=== PATIENT | female | born 1980 | race American Indian/Alaskan Native ===

== ENCOUNTER 2018-12-09 17:42 | Emergency (ER) | payer OTHER ==
[2018-12-09 18:12] VITALS: BP 164/93
--- NOTE | 2018-12-09 18:14 | Emergency Department Report ---
Blank Doc - Documentation Documentation: CP started today redness area on breast 3 days ago . Radiated down left arm. This initial assessment diagnostic orders/clinical plan/treatment (s) is/Are subject change based on patient's health status, clinical progression and re- assessment by fellow clinical providers in the ED. Further treatment and work-up at subsequent clinical providers discretion. Patient/guardians urged not to elope from their condition may be serious if not clinically assessed and managed. Initial order include:
[2018-12-09 18:38] LABS: Basophils # (Auto) 0.1 K/mm3 (0.0-0.1); Basophils % (Auto) 0.6 % (0.0-1.8); Eosinophils # (Auto) 0.1 K/mm3 (0.0-0.4); Eosinophils % (Auto) 1.1 % (0.0-4.3); Hematocrit 38.9 % (30.3-42.9); Hemoglobin 12.5 gm/dl (10.1-14.3); Lymphocytes # (Auto) 3.3 K/mm3 (1.2-5.4); Lymphocytes % (Auto) 39.6 % (13.4-35.0); Mean Corpuscular HGB Conc 32 % (30-34); Mean Corpuscular Volume 72 fl (79-97); Monocytes # (Auto) 0.8 K/mm3 (0.0-0.8); Monocytes % (Auto) 9.3 % (0.0-7.3); Platelet Count 308 K/mm3 (140-440); Red Blood Count 5.44 M/mm3 (3.65-5.03); Red Cell Distribution Width 15.6 % (13.2-15.2)
[2018-12-09 18:55] LABS: Alanine Aminotransferase 9 units/L (7-56); Albumin 3.8 g/dL (3.9-5); BUN/Creatinine Ratio 12; Blood Urea Nitrogen 7 mg/dL (7-17); Calcium 8.9 mg/dL (8.4-10.2); Hemolysis Index 5
[2018-12-09] MEDS ORDERED: ULTRAM PO ONE (19:58)
[2018-12-09] MEDS ORDERED: NACL 0.9% 1000 ML 1,000 ML IV ONE (20:48)
--- NOTE | 2018-12-09 20:54 | Emergency Department Report ---
ED Chest Pain HPI - General Chief Complaint: Chest Pain Stated Complaint: CHEST PAIN/LFT SIDE BREAST PAIN Time Seen by Provider: 12/09/18 19:28 Source: patient Mode of arrival: Ambulatory Limitations: No Limitations - History of Present Illness Initial Comments: There is associated emergency room decision and left anterolateral chest pain chest pain described as an aching pain is exacerbated by deep breathing and movement patient is a history of cardiac condition no hypertension or diabetes no family history of [place] or cardiac disease there's been no diaphoresis no shortness of breath no back pain this episode started 2 days ago. Patient denies cough no fever no chills there's a secondary concern for small breast lump left no nipple discharge no fever no dainage no erythema mass presents for past month pt noticed on monthly breast exam. MD Complaint: chest pain Onset/Timin -: days(s) Onset: during exertion Pain Location: left chest Pain Radiation: none Severity: moderate Severity scale (0 -10): 8 Quality: aching, sharp Consistency: intermittent Improves With: movement, other (deep breathing ) Worsens With: inspiration, palpation, movement re: denies: nausea, vomting, diaphoresis, dyspnea, sense of impending doom Other Symptoms: denies: cough, fever, syncope, leg swelling, palpitations Treatments Prior to Arrival: none Aspirin use within the Past 7 Days: (0) No - Related Data Previous Rx's Medication Instructions Recorded Last Taken Type Erythromycin [Erythromycin Ophth 10 applic OS QID #1 tube 09/24/16 Unknown Rx Oint] Ibuprofen [Motrin 800 MG tab] 800 mg PO Q8HR PRN #30 tablet 09/24/16 Unknown Rx ALBUTEROL Inhaler(NF) [VENTOLIN 2 puff IH Q4H PRN #1 inha 12/09/18 Unknown Rx Inhaler(NF)] Benzocaine/Menth/Cetylpyrd 1 each MM Q2H PRN #3 packet 12/09/18 Unknown Rx [Cepacol X Strength] Dexamethasone [Decadron] 4 mg PO BID 2 Days #4 tablet 12/09/18 Unknown Rx Ibuprofen 800 mg PO TID PRN #30 tablet 12/09/18 Unknown Rx Ondansetron [Zofran Odt] 4 mg PO Q8HR PRN #12 tab.rapdis 12/09/18 Unknown Rx Allergies Allergy/AdvReac Type Severity Reaction Status Date / Time No Known Allergies Allergy Verified 12/09/18 18:10 Heart Score - HEART Score History: Slightly suspicious EKG: Normal Age: < 45 Risk factors: No known risk factors Troponin: < normal limit HEART Score: 0 ED Review of Systems ROS: Stated complaint: CHEST PAIN/LFT SIDE BREAST PAIN Other details as noted in HPI Constitutional: denies: chills, fever Eyes: denies: eye pain, eye discharge, vision change ENT: denies: ear pain, throat pain Respiratory: denies: cough, shortness of breath, wheezing Cardiovascular: chest pain. denies: palpitations Endocrine: no symptoms reported Gastrointestinal: denies: abdominal pain, nausea, vomiting, diarrhea Genitourinary: denies: urgency, dysuria, discharge Musculoskeletal: denies: back pain, joint swelling, arthralgia Skin: other (lesion left breast ). denies: rash, lesions Neurological: denies: headache, weakness, paresthesias Psychiatric: denies: anxiety, depression Hematological/Lymphatic: denies: easy bleeding, easy bruising ED Past Medical Hx - Past Medical History Previous Medical History?: No - Surgical History Past Surgical History?: No - Social History Smoking Status: Never Smoker Substance Use Type: None - Medications Home Medications: Home Medications Medication Instructions Recorded Confirmed Last Taken Type Erythromycin [Erythromycin Ophth 10 applic OS QID #1 tube 09/24/16 Unknown Rx Oint] Ibuprofen [Motrin 800 MG tab] 800 mg PO Q8HR PRN #30 tablet 09/24/16 Unknown Rx ALBUTEROL Inhaler(NF) [VENTOLIN 2 puff IH Q4H PRN #1 inha 12/09/18 Unknown Rx Inhaler(NF)] Benzocaine/Menth/Cetylpyrd 1 each MM Q2H PRN #3 packet 12/09/18 Unknown Rx [Cepacol X Strength] Dexamethasone [Decadron] 4 mg PO BID 2 Days #4 tablet 12/09/18 Unknown Rx Ibuprofen 800 mg PO TID PRN #30 tablet 12/09/18 Unknown Rx Ondansetron [Zofran Odt] 4 mg PO Q8HR PRN #12 tab.rapdis 12/09/18 Unknown Rx ED Physical Exam - General Limitations: No Limitations General appearance: alert, in no apparent distress - Head Head exam: Present: atraumatic, normocephalic - Eye Eye exam: Present: normal appearance, PERRL, EOMI Pupils: Present: normal accommodation - ENT ENT exam: Present: normal orophraynx, mucous membranes moist, TM's normal bilaterally, normal external ear exam - Neck Neck exam: Present: normal inspection, full ROM. Absent: tenderness, meningismus, lymphadenopathy, thyromegaly - Respiratory Respiratory exam: Present: normal lung sounds bilaterally, chest wall tenderness (left lateral chest wall reproducible to deep palpation ). Absent: respiratory distress, wheezes, stridor, prolonged expiratory - Cardiovascular Cardiovascular Exam: Present: regular rate, normal rhythm, normal heart sounds. Absent: systolic murmur, diastolic murmur, rubs, gallop - GI/Abdominal GI/Abdominal exam: Present: soft, normal bowel sounds. Absent: tenderness, bruit, hernia - Rectal Rectal exam: Present: deferred - Extremities Exam Extremities exam: Present: normal inspection, full ROM, normal capillary refill. Absent: tenderness, joint swelling (vital) - Back Exam Back exam: Present: normal inspection, full ROM. Absent: tenderness, CVA tenderness (R), CVA tenderness (L), muscle spasm, rash noted - Neurological Exam Neurological exam: Present: alert, oriented X3, CN II-XII intact, normal gait, reflexes normal - Psychiatric Psychiatric exam: Present: normal affect, normal mood - Skin Skin exam: Present: warm, dry, intact, normal color. Absent: rash ED Course Vital Signs 12/09/18 12/09/18 18:10 20:23 Temperature 99.1 F Pulse Rate 87 Respiratory 16 16 Rate Blood Pressure 164/93 O2 Sat by Pulse 96 Oximetry ROSA score - Rosa Score Age > 65: (0) No Aspirin use within the Past 7 Days: (0) No 3 or more CAD Risk Factors: (0) No 2 or more Angina events in past 24 hrs: (0) No Known CAD with more than 50% Stenosis: (0) No Elevated Cardiac Markers: (0) No ST Deviation Greater than 0.5mm: (0) No ROSA Score: 0 ED Medical Decision Making - Lab Data Result diagrams: 12/09/18 18:20 12/09/18 18:20 Labs 12/09/18 12/09/18 12/09/18 18:20 18:20 18:20 WBC 8.3 RBC 5.44 H Hgb 12.5 Hct 38.9 MCV 72 L MCH 23 L MCHC 32 RDW 15.6 H Plt Count 308 Lymph % (Auto) 39.6 H [place] % (Auto) 9.3 H Eos % (Auto) 1.1 Baso % (Auto) 0.6 Lymph # 3.3 [place] # 0.8 Eos # 0.1 Baso # 0.1 Seg Neutrophils % 49.4 Seg Neutrophils # 4.1 Sodium 137 Potassium 3.4 L Chloride 100.3 Carbon Dioxide 27 Anion Gap 13 BUN 7 Creatinine 0.6 L Estimated GFR > 60 BUN/Creatinine Ratio 12 Glucose 97 Calcium 8.9 Total Bilirubin 0.30 AST 15 ALT 9 Alkaline Phosphatase 83 Troponin T < 0.010 Total Protein 7.5 Albumin 3.8 L Albumin/Globulin Ratio 1.0 HCG, Qual Negative - EKG Data EKG shows normal: sinus rhythm Rate: normal - EKG Data When compared to previous EKG there are: previous EKG unavailable Interpretation: normal EKG (ekg interp by ed attending, NSR no ectopy no st elevation) - Radiology Data Radiology results: image reviewed no infiltrates no opacities, - Medical Decision Making Pain improved, cxr: normal no opacties no infiltrates , symptoms improved with tx given in ed ,this is pharyngitis ,tx'd for same, plan, dc to home with rx for decadron, albuterol inhaler prn sob, ibuprofen prn pain cepacol throat lozenges prn throat pain, pt will follow up with pcp in 2-3 days , pt verbalized agreement and understanding of discharge plan. Critical care attestation.: If time is entered above; I have spent that time in minutes in the direct care of this critically ill patient, excluding procedure time. ED Disposition Clinical Impression: Pharyngitis Qualifiers: Pharyngitis/tonsillitis etiology: unspecified etiology Qualified Code(s): J02.9 - Acute pharyngitis, unspecified URI (upper respiratory infection) Qualifiers: URI type: unspecified viral URI Qualified Code(s): J06.9 - Acute upper respiratory infection, unspecified Disposition: DC-01 TO HOME OR SELFCARE Is pt being admited?: No Does the pt Need Aspirin: No Condition: Stable Instructions: Pharyngitis (ED), Upper Respiratory Infection (ED) Prescriptions: ALBUTEROL Inhaler(NF) [VENTOLIN Inhaler(NF)] 2 puff IH Q4H PRN #1 inha PRN Reason: shortness of breath wheezing Benzocaine/Menth/Cetylpyrd [Cepacol X Strength] 1 each MM Q2H PRN #3 packet PRN Reason: throat pain Dexamethasone [Decadron] 4 mg PO BID 2 Days #4 tablet Ibuprofen 800 mg PO TID PRN #30 tablet PRN Reason: pain fever Ondansetron [Zofran Odt] 4 mg PO Q8HR PRN #12 tab.rapdis PRN Reason: Nausea And Vomiting Referrals: [facility] [Outside] - 3-5 Days Forms: Work/School Release Form(ED) Time of Disposition: 22:03
--- NOTE | 2018-12-10 19:27 | XRay Report ---
PROCEDURE: XR CHEST ROUTINE 2V HISTORY: Chest Pain FINDINGS: Frontal and lateral views of the chest were acquired. The heart is mildly enlarged. There is no evide nce of congestive heart failure. There is no consolidative infiltrate. IMPRESSION: Mild cardiomegaly. Otherwise, no active disease in the chest This document is electronically signed by Christopher Whyte MD., December 09 2018 09:25:44 PM ET
== END 2018-12-09 22:13 | disposition home or self-care (01) ==
LOC: ED 17:42
DX: J02.9 Acute pharyngitis, unspecified (principal); J06.9 Acute upper respiratory infection, unspecified
CPT/HCPCS: 36415; 71046; 80053; 84484; 84703; 85025; 93005; 93010; 99284; J7030

== ENCOUNTER 2019-01-28 12:39 | Emergency (ER) | payer OTHER ==
[2019-01-28 12:53] VITALS: BP 134/102
--- NOTE | 2019-01-28 12:55 | Emergency Department Report ---
Chief Complaint: Sore Throat Stated Complaint: LIGHT HEADED/VOMITING Time Seen by Provider: 01/28/19 12:51 - HPI History of Present Illness: pt states she has a sore throat that began yesterday has N/V- 3x denies diarrhea no abd pain no PMHx denies sick contacts no new foods, no water from a different source, no recent travel no urinary sx no meds on daily basis LNMP 8 days ago MSE screening note: Focused history and physical exam performed. Due to findings the following was ordered: rapid strep, cbc, bmp, hcg, and UA ED Disposition for MSE Condition: Stable
[2019-01-28 13:12] LABS: Basophils # (Auto) 0.1 K/mm3 (0.0-0.1); Basophils % (Auto) 0.8 % (0.0-1.8); Eosinophils # (Auto) 0.1 K/mm3 (0.0-0.4); Eosinophils % (Auto) 1.3 % (0.0-4.3); Hematocrit 38.8 % (30.3-42.9); Hemoglobin 12.6 gm/dl (10.1-14.3); Lymphocytes # (Auto) 2.9 K/mm3 (1.2-5.4); Lymphocytes % (Auto) 43.4 % (13.4-35.0); Mean Corpuscular HGB Conc 32 % (30-34); Mean Corpuscular Volume 71 fl (79-97); Monocytes # (Auto) 0.6 K/mm3 (0.0-0.8); Monocytes % (Auto) 8.6 % (0.0-7.3); Platelet Count 344 K/mm3 (140-440); Red Blood Count 5.46 M/mm3 (3.65-5.03); Red Cell Distribution Width 15.2 % (13.2-15.2)
[2019-01-28 13:32] LABS: BUN/Creatinine Ratio 13; Blood Urea Nitrogen 8 mg/dL (7-17); Calcium 8.6 mg/dL (8.4-10.2); Hemolysis Index 0
[2019-01-28 14:37] LABS: Bilirubin,Urine NEG (Negative); Blood,Urine NEG (Negative); Color,Urine Yellow (Yellow); Mucus,Urine 1+ /HPF; Protein,Urine <15 mg/dL mg/dL (Negative); Urobilinogen,Urine < 2.0 mg/dL (<2.0)
--- NOTE | 2019-01-28 16:26 | Emergency Department Report ---
ED General Adult HPI - General Chief complaint: Sore Throat Stated complaint: LIGHT HEADED/VOMITING Time Seen by Provider: 01/28/19 12:51 Source: patient Mode of arrival: Ambulatory Limitations: No Limitations - History of Present Illness Initial comments: Patient presents to the emergency department with a chief complaint of sore throat with nausea and vomiting the last couple days. Patient denies any sick contacts. Patient also denies chest pain, abdominal pain, shortness breath. Patient's concerned about her blood pressures well which is elevated on his ED visit. Patient states her blood pressure is always elevated when she goes to her doctor as well. -: Gradual Severity scale (0 -10): 0 Quality: aching Consistency: constant Improves with: none Worsens with: none Associated Symptoms: denies other symptoms Treatments Prior to Arrival: none - Related Data Previous Rx's Medication Instructions Recorded Last Taken Type Erythromycin [Erythromycin Ophth 10 applic OS QID #1 tube 09/24/16 Unknown Rx Oint] Ibuprofen [Motrin 800 MG tab] 800 mg PO Q8HR PRN #30 tablet 09/24/16 Unknown Rx ALBUTEROL Inhaler(NF) [VENTOLIN 2 puff IH Q4H PRN #1 inha 12/09/18 Unknown Rx Inhaler(NF)] Benzocaine/Mentho [Cepacol X 1 each MM Q2H PRN #3 packet 12/09/18 Unknown Rx Strength] Dexamethasone [Decadron] 4 mg PO BID 2 Days #4 tablet 12/09/18 Unknown Rx Ibuprofen 800 mg PO TID PRN #30 tablet 12/09/18 Unknown Rx Ondansetron [Zofran Odt] 4 mg PO Q8HR PRN #12 tab.rapdis 12/09/18 Unknown Rx Ondansetron [Zofran Odt] 4 mg PO Q4HR PRN #20 tab.rapdis 01/28/19 Unknown Rx hydroCHLOROthiazide [Hctz] 12.5 mg PO BID #60 capsule 01/28/19 Unknown Rx traMADol [Ultram] 50 mg PO Q6HR PRN #24 tablet 01/28/19 Unknown Rx Allergies Allergy/AdvReac Type Severity Reaction Status Date / Time No Known Allergies Allergy Verified 12/09/18 18:10 ED Review of Systems ROS: Stated complaint: LIGHT HEADED/VOMITING Other details as noted in HPI Comment: All other systems reviewed and negative Constitutional: denies: chills, fever Eyes: denies: eye pain, eye discharge, vision change ENT: denies: ear pain, throat pain Respiratory: denies: cough, shortness of breath, wheezing Cardiovascular: denies: chest pain, palpitations Endocrine: no symptoms reported Gastrointestinal: nausea, vomiting. denies: abdominal pain, diarrhea Genitourinary: denies: urgency, dysuria, discharge Musculoskeletal: denies: back pain, joint swelling, arthralgia Skin: denies: rash, lesions Neurological: denies: headache, weakness, paresthesias Psychiatric: denies: anxiety, depression Hematological/Lymphatic: denies: easy bleeding, easy bruising ED Past Medical Hx - Past Medical History Previous Medical History?: No - Surgical History Past Surgical History?: Yes Additional Surgical History: C section - Social History Smoking Status: Never Smoker Substance Use Type: None - Medications Home Medications: Home Medications Medication Instructions Recorded Confirmed Last Taken Type Erythromycin [Erythromycin Ophth 10 applic OS QID #1 tube 09/24/16 Unknown Rx Oint] Ibuprofen [Motrin 800 MG tab] 800 mg PO Q8HR PRN #30 tablet 09/24/16 Unknown Rx ALBUTEROL Inhaler(NF) [VENTOLIN 2 puff IH Q4H PRN #1 inha 12/09/18 Unknown Rx Inhaler(NF)] Benzocaine/Mentho [Cepacol X 1 each MM Q2H PRN #3 packet 12/09/18 Unknown Rx Strength] Dexamethasone [Decadron] 4 mg PO BID 2 Days #4 tablet 12/09/18 Unknown Rx Ibuprofen 800 mg PO TID PRN #30 tablet 12/09/18 Unknown Rx Ondansetron [Zofran Odt] 4 mg PO Q8HR PRN #12 tab.rapdis 12/09/18 Unknown Rx Ondansetron [Zofran Odt] 4 mg PO Q4HR PRN #20 tab.rapdis 01/28/19 Unknown Rx hydroCHLOROthiazide [Hctz] 12.5 mg PO BID #60 capsule 01/28/19 Unknown Rx traMADol [Ultram] 50 mg PO Q6HR PRN #24 tablet 01/28/19 Unknown Rx ED Physical Exam - General Limitations: No Limitations General appearance: alert, in no apparent distress - Head Head exam: Present: atraumatic, normocephalic - Eye Eye exam: Present: normal appearance, PERRL, EOMI - ENT ENT exam: Present: mucous membranes moist - Neck Neck exam: Present: normal inspection - Respiratory Respiratory exam: Present: normal lung sounds bilaterally. Absent: respiratory distress, wheezes - Cardiovascular Cardiovascular Exam: Present: regular rate, normal rhythm. Absent: systolic murmur, diastolic murmur, rubs, gallop - GI/Abdominal GI/Abdominal exam: Present: soft, normal bowel sounds. Absent: distended, tenderness - Extremities Exam Extremities exam: Present: normal inspection - Back Exam Back exam: Present: normal inspection - Neurological Exam Neurological exam: Present: alert, oriented X3, CN II-XII intact. Absent: motor sensory deficit - Psychiatric Psychiatric exam: Present: normal affect, normal mood - Skin Skin exam: Present: warm, dry, intact, normal color. Absent: rash ED Course Vital Signs 01/28/19 12:51 Temperature 98.1 F Pulse Rate 90 Respiratory 18 Rate Blood Pressure 134/102 O2 Sat by Pulse 98 Oximetry ED Medical Decision Making - Lab Data Result diagrams: 01/28/19 12:59 01/28/19 12:59 Lab Results 01/28/19 01/28/19 01/28/19 Range/Units 12:55 12:59 12:59 WBC 6.7 (4.5-11.0) K/mm3 RBC 5.46 H (3.65-5.03) M/mm3 Hgb 12.6 (10.1-14.3) gm/dl Hct 38.8 (30.3-42.9) % MCV 71 L (79-97) fl MCH 23 L (28-32) pg MCHC 32 (30-34) % RDW 15.2 (13.2-15.2) % Plt Count 344 (140-440) K/mm3 Lymph % (Auto) 43.4 H (13.4-35.0) % [place] % (Auto) 8.6 H (0.0-7.3) % Eos % (Auto) 1.3 (0.0-4.3) % Baso % (Auto) 0.8 (0.0-1.8) % Lymph # 2.9 (1.2-5.4) K/mm3 [place] # 0.6 (0.0-0.8) K/mm3 Eos # 0.1 (0.0-0.4) K/mm3 Baso # 0.1 (0.0-0.1) K/mm3 Seg Neutrophils % 45.9 (40.0-70.0) % Seg Neutrophils # 3.1 (1.8-7.7) K/mm3 Sodium 141 (137-145) mmol/L Potassium 3.9 (3.6-5.0) mmol/L Chloride 104.6 (98-107) mmol/L Carbon Dioxide 26 (22-30) mmol/L Anion Gap 14 mmol/L BUN 8 (7-17) mg/dL Creatinine 0.6 L (0.7-1.2) mg/dL Estimated GFR > 60 ml/min BUN/Creatinine Ratio 13 % Glucose 102 H (65-100) mg/dL Calcium 8.6 (8.4-10.2) mg/dL HCG, Qual (Negative) Urine Color (Yellow) Urine Turbidity (Clear) Urine pH (5.0-7.0) Ur Specific [place] (1.003-1.030) Urine Protein (Negative) mg/dL Urine Glucose (UA) (Negative) mg/dL Urine Ketones (Negative) mg/dL Urine Blood (Negative) Urine Nitrite (Negative) Urine Bilirubin (Negative) Urine Urobilinogen (<2.0) mg/dL Ur Leukocyte Esterase (Negative) Urine WBC (Auto) (0.0-6.0) /HPF Urine RBC (Auto) (0.0-6.0) /HPF U Epithel Cells (Auto) (0-13.0) /HPF Urine Mucus /HPF Group A Strep Rapid Negative (Negative) 01/28/19 01/28/19 Range/Units 12:59 14:19 WBC (4.5-11.0) K/mm3 RBC (3.65-5.03) M/mm3 Hgb (10.1-14.3) gm/dl Hct (30.3-42.9) % MCV (79-97) fl MCH (28-32) pg MCHC (30-34) % RDW (13.2-15.2) % Plt Count (140-440) K/mm3 Lymph % (Auto) (13.4-35.0) % [place] % (Auto) (0.0-7.3) % Eos % (Auto) (0.0-4.3) % Baso % (Auto) (0.0-1.8) % Lymph # (1.2-5.4) K/mm3 [place] # (0.0-0.8) K/mm3 Eos # (0.0-0.4) K/mm3 Baso # (0.0-0.1) K/mm3 Seg Neutrophils % (40.0-70.0) % Seg Neutrophils # (1.8-7.7) K/mm3 Sodium (137-145) mmol/L Potassium (3.6-5.0) mmol/L Chloride (98-107) mmol/L Carbon Dioxide (22-30) mmol/L Anion Gap mmol/L BUN (7-17) mg/dL Creatinine (0.7-1.2) mg/dL Estimated GFR ml/min BUN/Creatinine Ratio % Glucose (65-100) mg/dL Calcium (8.4-10.2) mg/dL HCG, Qual Negative (Negative) Urine Color Yellow (Yellow) Urine Turbidity Clear (Clear) Urine pH 7.0 (5.0-7.0) Ur Specific [place] 1.033 H (1.003-1.030) Urine Protein <15 mg/dl (Negative) mg/dL Urine Glucose (UA) Neg (Negative) mg/dL Urine Ketones Neg (Negative) mg/dL Urine Blood Neg (Negative) Urine Nitrite Neg (Negative) Urine Bilirubin Neg (Negative) Urine Urobilinogen < 2.0 (<2.0) mg/dL Ur Leukocyte Esterase Neg (Negative) Urine WBC (Auto) 3.0 (0.0-6.0) /HPF Urine RBC (Auto) 2.0 (0.0-6.0) /HPF U Epithel Cells (Auto) 4.0 (0-13.0) /HPF Urine Mucus 1+ /HPF Group A Strep Rapid (Negative) - Medical Decision Making Discussed results with patient Critical care attestation.: If time is entered above; I have spent that time in minutes in the direct care of this critically ill patient, excluding procedure time. ED Disposition Clinical Impression: Nausea & vomiting, Elevated BP without diagnosis of hypertension, Pharyngitis Disposition: TO HOME OR SELFCARE Is pt being admited?: No Does the pt Need Aspirin: No Condition: Stable Instructions: Pharyngitis (ED), Chronic Hypertension (ED), Acute Nausea and Vomiting (ED) Additional Instructions: return if worse Prescriptions: hydroCHLOROthiazide [Hctz] 12.5 mg PO BID #60 capsule traMADol [Ultram] 50 mg PO Q6HR PRN #24 tablet PRN Reason: Pain Ondansetron [Zofran Odt] 4 mg PO Q4HR PRN #20 tab.rapdis PRN Reason: Nausea Referrals: PRIMARY CARE, [Primary Care Provider] - 3-5 Days Time of Disposition: 16:25
== END 2019-01-28 16:34 | disposition home or self-care (01) ==
LOC: ED 12:39
DX: R11.2 Nausea with vomiting, unspecified (principal); J02.9 Acute pharyngitis, unspecified; R03.0 Elevated blood-pressure reading, without diagnosis of hypertension
CPT/HCPCS: 36415; 80048; 81001; 84703; 85025; 87116; 87430; 99283

== ENCOUNTER 2020-04-10 06:47 | Emergency (ER) | payer OTHER ==
[2020-04-10] MEDS ORDERED: KETOROLAC 60 MG/2 ML INJ IM ONE (08:55)
[2020-04-10] MEDS ORDERED: KETOROLAC 60 MG/2 ML INJ ONE (08:57)
--- NOTE | 2020-04-10 08:58 | Emergency Department Report ---
ED Headache HPI - General Chief Complaint: Headache Stated Complaint: HERNANDEZ Time Seen by Provider: 04/10/20 08:43 Source: patient - History of Present Illness Initial Comments: Patient is 39 years old female with history of chronic migraine. Patient presented to the ER complaining of headache x2 days. Patient stated that similar to her previous headache however this time she noticed that her urine looks sweet and she has more frequent urination than before and she found herself more thirsty. Patient stated that she was diagnosed with prediabetes before. Patient denied any nausea or vomiting. No neck pain, weakness numbness or tingling sensation. No fever or chills. Timing/Duration: 24 hours Quality: moderate Head Injury Location: temporal Recent Head Trauma: no recent headache/trauma, frequent headaches, chronic headaches Modifying Factors: improves with: exposure to light Associated Symptoms: denies: denies symptoms, confusion, fatigue, facial pain, fever/chills, flushing, loss of consciousness, nausea/vomiting, nasal congestion, nasal drainage, numbness in legs/feet, rash, seizures, sinus infection, stiff neck, vision changes, weakness, other Allergies/Adverse Reactions: Allergies No Known Allergies Allergy (Verified 12/09/18 18:10) Home Medications: Ambulatory Orders Erythromycin [Erythromycin Ophth Oint] 10 applic OS QID #1 tube 09/24/16 Ibuprofen [Motrin 800 MG tab] 800 mg PO Q8HR PRN #30 tablet 09/24/16 ALBUTEROL Inhaler(NF) [VENTOLIN Inhaler(NF)] 2 puff IH Q4H PRN #1 inha 12/09/18 Benzocaine/Mentho [Cepacol X Strength] 1 each MM Q2H PRN #3 packet 12/09/18 Ibuprofen [Ibuprofen 800] 800 mg PO TID PRN #30 tablet 12/09/18 Ondansetron [Zofran Odt] 4 mg PO Q8HR PRN #12 tab.rapdis 12/09/18 dexAMETHasone [Decadron] 4 mg PO BID 2 Days #4 tablet 12/09/18 Ondansetron [Zofran Odt] 4 mg PO Q4HR PRN #20 tab.rapdis 01/28/19 hydroCHLOROthiazide [Hctz] 12.5 mg PO BID #60 capsule 01/28/19 traMADoL [Ultram] 50 mg PO Q6HR PRN #24 tablet 01/28/19 ED Review of Systems ROS: Stated complaint: HERNANDEZ Other details as noted in HPI Comment: All other systems reviewed and negative Constitutional: denies: chills, fever Respiratory: denies: cough, shortness of breath, SOB with exertion, wheezing Cardiovascular: denies: chest pain Endocrine: increased thirst, increased urine Gastrointestinal: denies: abdominal pain, nausea, vomiting, diarrhea, constipation, hematemesis, melena Genitourinary: frequency Musculoskeletal: denies: back pain Neurological: headache. denies: weakness, numbness, paresthesias, confusion ED Past Medical Hx - Past Medical History Previous Medical History?: Yes Hx Asthma: Yes (child) - Surgical History Past Surgical History?: Yes Additional Surgical History: C section x1. rhinoplasty. - Social History Smoking Status: Never Smoker Substance Use Type: None - Medications Home Medications: Home Medications Medication Instructions Recorded Confirmed Last Taken Type Erythromycin [Erythromycin Ophth 10 applic OS QID #1 tube 09/24/16 Unknown Rx Oint] Ibuprofen [Motrin 800 MG tab] 800 mg PO Q8HR PRN #30 tablet 09/24/16 Unknown Rx ALBUTEROL Inhaler(NF) [VENTOLIN 2 puff IH Q4H PRN #1 inha 12/09/18 Unknown Rx Inhaler(NF)] Benzocaine/Mentho [Cepacol X 1 each MM Q2H PRN #3 packet 12/09/18 Unknown Rx Strength] Ibuprofen [Ibuprofen 800] 800 mg PO TID PRN #30 tablet 12/09/18 Unknown Rx Ondansetron [Zofran Odt] 4 mg PO Q8HR PRN #12 tab.rapdis 12/09/18 Unknown Rx dexAMETHasone [Decadron] 4 mg PO BID 2 Days #4 tablet 12/09/18 Unknown Rx Ondansetron [Zofran Odt] 4 mg PO Q4HR PRN #20 tab.rapdis 01/28/19 Unknown Rx hydroCHLOROthiazide [Hctz] 12.5 mg PO BID #60 capsule 01/28/19 Unknown Rx traMADoL [Ultram] 50 mg PO Q6HR PRN #24 tablet 01/28/19 Unknown Rx ED Physical Exam - General Limitations: No Limitations General appearance: alert, in no apparent distress - Head Head exam: Present: atraumatic, normocephalic, normal inspection - Eye Eye exam: Present: normal appearance - ENT ENT exam: Present: normal exam, normal orophraynx, mucous membranes moist - Neck Neck exam: Present: normal inspection, full ROM. Absent: tenderness, meningismus, lymphadenopathy, thyromegaly - Respiratory Respiratory exam: Present: normal lung sounds bilaterally - Cardiovascular Cardiovascular Exam: Present: regular rate, normal rhythm, normal heart sounds - GI/Abdominal GI/Abdominal exam: Present: soft, normal bowel sounds. Absent: distended, tenderness, guarding, rebound, rigid, organomegaly, mass, bruit, pulsatile mass, hernia - Extremities Exam Extremities exam: Present: normal inspection, full ROM, normal capillary refill. Absent: tenderness, pedal edema, calf tenderness - Back Exam Back exam: Present: normal inspection, full ROM. Absent: CVA tenderness (R), CVA tenderness (L) - Neurological Exam Neurological exam: Present: alert, oriented X3, CN II-XII intact, normal gait, reflexes normal. Absent: motor sensory deficit - Psychiatric Psychiatric exam: Present: normal mood - Skin Skin exam: Present: warm, intact, normal color ED Course Vital Signs 04/10/20 04/10/20 06:55 08:50 Temperature 98.5 F 98.2 F Pulse Rate 93 H 86 Respiratory 18 15 Rate Blood Pressure 151/100 Blood Pressure 166/11 [Left] O2 Sat by Pulse 98 100 Oximetry ED Medical Decision Making - Lab Data Result diagrams: 04/10/20 09:00 04/10/20 09:00 - Medical Decision Making Patient is 39 years old female with history of chronic migraine. Patient pres ented to the ER complaining of headache x2 days. Patient stated that similar to her previous headache however this time she noticed that her urine looks sweet and she has more frequent urination than before and she found herself more thirsty. Patient stated that she was diagnosed with prediabetes before. Patient denied any nausea or vomiting. No neck pain, weakness numbness or tingling sensation. No fever or chills. Patient received Toradol, morphine and Zofran. Patient stated that she is feeling better. Labs reviewed and is unremarkable. Patient given prescription for tramadol and advised to follow-up with her primary doctor in the next 2 to 3 days and to return to the ER if she develop any new symptoms. Critical care attestation.: If time is entered above; I have spent that time in minutes in the direct care of this critically ill patient, excluding procedure time. ED Disposition Clinical Impression: Acute headache Disposition: DC-01 TO HOME OR SELFCARE Is pt being admited?: No Condition: Stable Instructions: Acute Headache (ED) Referrals: CORI EWING MD [Primary Care Provider] - 3-5 Days
[2020-04-10 09:30] LABS: Basophils # (Auto) 0.1 K/mm3 (0.0-0.1); Basophils % (Auto) 1.2 % (0.0-1.8); Eosinophils # (Auto) 0.1 K/mm3 (0.0-0.4); Eosinophils % (Auto) 1.6 % (0.0-4.3); Hematocrit 34.8 % (30.3-42.9); Hemoglobin 12.1 gm/dl (10.1-14.3); Lymphocytes # (Auto) 3.8 K/mm3 (1.2-5.4); Lymphocytes % (Auto) 48.2 % (13.4-35.0); Mean Corpuscular HGB Conc 35 % (30-34); Mean Corpuscular Volume 71 fl (79-97); Monocytes # (Auto) 0.7 K/mm3 (0.0-0.8); Monocytes % (Auto) 9.1 % (0.0-7.3); Platelet Count 338 K/mm3 (140-440); Red Blood Count 4.87 M/mm3 (3.65-5.03)
[2020-04-10 09:50] LABS: Bacteria,Urine 1+ /HPF (Negative); Bilirubin,Urine NEG (Negative); Blood,Urine NEG (Negative); Color,Urine Yellow (Yellow); Mucus,Urine FEW /HPF; Protein,Urine <15 mg/dL mg/dL (Negative); Urobilinogen,Urine < 2.0 mg/dL (<2.0)
[2020-04-10 10:22] LABS: Alanine Aminotransferase 10 units/L (7-56); BUN/Creatinine Ratio 17; Blood Urea Nitrogen 12 mg/dL (7-17); Calcium 8.6 mg/dL (8.4-10.2)
[2020-04-10 10:23] LABS: Albumin 3.9 g/dL (3.9-5); Hemolysis Index 15
[2020-04-10] MEDS ORDERED: ONDANSETRON 4 MG/2 ML INJ IM ONE (10:34)
[2020-04-10] MEDS ORDERED: MORPHINE 4 MG/1 ML INJ IM ONE (10:34)
[2020-04-10 10:48] VITALS: BP 155/109
== END 2020-04-10 10:53 | disposition home or self-care (01) ==
LOC: ED 06:47
DX: R51 Headache (principal); J45.909 Unspecified asthma, uncomplicated; Z98.890 Other specified postprocedural states; Z79.1 Long term (current) use of non-steroidal anti-inflammatories (NSAID); Z79.899 Other long term (current) drug therapy
CPT/HCPCS: 36415; 80053; 81001; 85025; J1885; J2270; J2405; 96372

== ENCOUNTER 2021-04-28 12:52 | Inpatient (IN) | payer OTHER ==
--- NOTE | 2021-04-28 13:26 | Emergency Department Report ---
Blank Doc - Documentation Documentation: 40-year-old female that presents with chest pains, tightness, SOB and generali zed body aches. PCP instructed patient to get covid testing. Came back from [place] prior to symptoms. 1- This is a initial triage assessment/medical screening only. Full assessment and work-up will be completed once the patient is in proper hospital gown, ED bed and in a private room setting. This initial assessment/diagnostic orders/clinical plan/ treatment(s) is/are subject to change based on pt's health status, clinical progression and re-assessment by fellow clinical providers in the ED. Further treatment and workup at subsequent clinical providers discretion. Patient/guardians urged not to elope from ED as their condition may be serious if not clinically assessed and managed. 2-cardiac workup
[2021-04-28 14:54] LABS: Basophils % (Auto) 0.4 % (0.0-1.8); Hematocrit 40.4 % (30.3-42.9); Hemoglobin 13.3 gm/dl (10.1-14.3); Lymphocytes # (Auto) 2.1 K/mm3 (1.2-5.4); Lymphocytes % (Auto) 47.5 % (13.4-35.0); Mean Corpuscular HGB Conc 33 % (30-34); Mean Corpuscular Volume 71 fl (79-97); Monocytes # (Auto) 0.4 K/mm3 (0.0-0.8); Monocytes % (Auto) 8.8 % (0.0-7.3); Platelet Count 245 K/mm3 (140-440); Red Blood Count 5.68 M/mm3 (3.65-5.03); Red Cell Distribution Width 15.2 % (13.2-15.2)
[2021-04-28 15:04] LABS: INR 0.92 (0.87-1.13)
[2021-04-28 15:05] LABS: Partial Thromboplastin Time 29.7 Sec. (24.2-36.6)
[2021-04-28 15:15] LABS: Alanine Aminotransferase 18 units/L (7-56); Albumin 3.6 g/dL (3.9-5); Blood Urea Nitrogen 7 mg/dL (7-17); Calcium 8.5 mg/dL (8.4-10.2); Hemolysis Index 26
[2021-04-28 15:16] LABS: BUN/Creatinine Ratio 10
--- NOTE | 2021-04-28 15:28 | XRay Report ---
CHEST 2 VIEWS INDICATION / CLINICAL INFORMATION: Chest Pain. FINDINGS: SUPPORT DEVICES: None. HEART / MEDIASTINUM: No significant abnormality. LUNGS / PLEURA: No significant pulmonary or pleural abnormality. No pneumothorax. ADDITIONAL FINDINGS: No significant additional findings. IMPRESSION: 1. No acute findings. Signer Name: Willem Del Real MD Signed: 04/28/2021 3:24 PM Workstation Name: [id number]
[2021-04-28] MEDS ORDERED: IPRATROPIUM 0.02% NEBU 2.5 ML IH ONE (17:30)
[2021-04-28] MEDS ORDERED: ALBUTEROL 2.5 MG/3 ML NEBU IH ONE (17:30)
[2021-04-28] MEDS ORDERED: POTASSIUM CHLORIDE ER 20 MEQ TAB PO ONE (17:33)
--- NOTE | 2021-04-28 17:33 | Emergency Department Report ---
HPI - General Chief Complaint: Chest Pain Time Seen by Provider: 04/28/21 13:25 - HPI HPI: Room 22 The patient is a 40-year-old female present with a chief complaint of flu symptoms and chest tightness. The patient states she has had flulike symptoms f or 1 week which includes a sore throat body aches and nasal congestion. Patient states she has had a cough productive of yellow sputum. Patient states yesterday she developed a constant tightness in the chest associated with shortness of breath. Patient admits to history of fever 101 F in the past. The patient states her nephew and [id number] are also sick. Patient states she has not received any Covid vaccinations. Patient states she is never had a stress test or cardiac catheterization ED Past Medical Hx - Past Medical History Previous Medical History?: Yes Hx Asthma: Yes (child) - Surgical History Past Surgical History?: Yes Additional Surgical History: C section x1. rhinoplasty. - Family History Family history: no significant - Social History Smoking Status: Never Smoker Substance Use Type: None (Denies illicit drug use), Alcohol (Occasional) - Medications Home Medications: Home Medications Medication Instructions Recorded Confirmed Last Taken Type Erythromycin [Erythromycin Ophth 10 applic OS QID #1 tube 09/24/16 Unknown Rx Oint] Ibuprofen [Motrin 800 MG tab] 800 mg PO Q8HR PRN #30 tablet 09/24/16 Unknown Rx ALBUTEROL Inhaler(NF) [VENTOLIN 2 puff IH Q4H PRN #1 inha 12/09/18 Unknown Rx Inhaler(NF)] Benzocaine/Mentho [Cepacol X 1 each MM Q2H PRN #3 packet 12/09/18 Unknown Rx Strength] Ibuprofen [Ibuprofen 800] 800 mg PO TID PRN #30 tablet 12/09/18 Unknown Rx Ondansetron [Zofran Odt] 4 mg PO Q8HR PRN #12 tab.rapdis 12/09/18 Unknown Rx dexAMETHasone [Decadron] 4 mg PO BID 2 Days #4 tablet 12/09/18 Unknown Rx Ondansetron [Zofran Odt] 4 mg PO Q4HR PRN #20 tab.rapdis 01/28/19 Unknown Rx hydroCHLOROthiazide [Hctz] 12.5 mg PO BID #60 capsule 01/28/19 Unknown Rx traMADoL [Ultram] 50 mg PO Q6HR PRN #24 tablet 01/28/19 Unknown Rx Ondansetron [Zofran Odt] 4 mg PO Q8HR PRN #14 tab.rapdis 04/10/20 Unknown Rx traMADoL [Ultram 50 MG tab] 50 mg PO Q4HR PRN #14 tablet 04/10/20 Unknown Rx ED Review of Systems ROS: Stated complaint: SOB/CHEST PAIN x1WEEK Other details as noted in HPI Constitutional: diaphoresis, fever Eyes: denies: eye pain ENT: throat pain Respiratory: cough, shortness of breath Cardiovascular: chest pain Endocrine: no symptoms reported Gastrointestinal: nausea, vomiting Genitourinary: denies: dysuria Musculoskeletal: myalgia Neurological: headache Physical Exam - Physical Exam Vital Signs: Vital Signs 04/28/21 13:21 Temperature 98.4 F Pulse Rate 99 H Respiratory 18 Rate Blood Pressure 124/87 O2 Sat by Pulse 98 Oximetry Physical Exam: GENERAL: The patient is well-developed well-nourished female lying on stretcher not appearing to be in acute distress. [] HEENT: Normocephalic. Atraumatic. Extraocular motions are intact. Patient has moist mucous membranes. NECK: Supple. Trachea midline CHEST/LUNGS: Clear to auscultation. There is no respiratory distress noted. HEART/CARDIOVASCULAR: Regular. There is no tachycardia. There is no gallop rub or murmur. ABDOMEN: Abdomen is soft, nontender. Patient has normal bowel sounds. There is no abdominal distention. SKIN: There is no rash. There is no edema. There is no diaphoresis. NEURO: The patient is awake, alert, and oriented. The patient is cooperative. The patient has no focal neurologic deficits. The patient has normal speech MUSCULOSKELETAL: There is no evidence of acute injury. ED Course Vital Signs 04/28/21 13:21 Temperature 98.4 F Pulse Rate 99 H Respiratory 18 Rate Blood Pressure 124/87 O2 Sat by Pulse 98 Oximetry - Reevaluation(s) Reevaluation #1: 04/28/21 18:41 Patient states nebulizer helped resolve her chest tightness Reevaluation #2: 04/28/21 18:47 Patient desats to 92% on room air with ambulation of 15 feet. Patient also began complaining of chest tightness again with shortness of breath during ambulation. We will admit the patient for further observation ED Medical Decision Making - Lab Data Result diagrams: 04/28/21 14:20 04/28/21 14:20 Laboratory Tests 04/28/21 04/28/21 04/28/21 14:20 14:20 14:20 WBC 4.5 RBC 5.68 H Hgb 13.3 Hct 40.4 MCV 71 L MCH 24 L MCHC 33 RDW 15.2 Plt Count 245 Lymph % (Auto) 47.5 H Dane % (Auto) 8.8 H Eos % (Auto) 0.0 Baso % (Auto) 0.4 Lymph # (Auto) 2.1 Dane # (Auto) 0.4 Eos # (Auto) 0.0 Baso # (Auto) 0.0 Seg Neutrophils % 43.3 Seg Neutrophils # 1.9 PT 12.9 INR 0.92 APTT 29.7 D-Dimer Sodium 138 Potassium 3.3 L Chloride 102.4 Carbon Dioxide 23 Anion Gap 16 BUN 7 Creatinine 0.7 Estimated GFR > 60 BUN/Creatinine Ratio 10 Glucose 94 Calcium 8.5 Total Bilirubin 0.30 AST 25 ALT 18 Alkaline Phosphatase 79 Troponin T < 0.010 Total Protein 7.4 Albumin 3.6 L Albumin/Globulin Ratio 0.9 HCG, Qual Influenza A (Rapid) Influenza B (Rapid) 04/28/21 04/28/21 04/28/21 14:20 14:20 16:47 WBC RBC Hgb Hct MCV MCH MCHC RDW Plt Count Lymph % (Auto) Dane % (Auto) Eos % (Auto) Baso % (Auto) Lymph # (Auto) Dane # (Auto) Eos # (Auto) Baso # (Auto) Seg Neutrophils % Seg Neutrophils # PT INR APTT D-Dimer 151.27 Sodium Potassium Chloride Carbon Dioxide Anion Gap BUN Creatinine Estimated GFR BUN/Creatinine Ratio Glucose Calcium Total Bilirubin AST ALT Alkaline Phosphatase Troponin T < 0.010 Total Protein Albumin Albumin/Globulin Ratio HCG, Qual Negative Influenza A (Rapid) Influenza B (Rapid) 04/28/21 04/28/21 18:14 Unknown WBC RBC Hgb Hct MCV MCH MCHC RDW Plt Count Lymph % (Auto) Dane % (Auto) Eos % (Auto) Baso % (Auto) Lymph # (Auto) Dane # (Auto) Eos # (Auto) Baso # (Auto) Seg Neutrophils % Seg Neutrophils # PT INR APTT D-Dimer Sodium Potassium Chloride Carbon Dioxide Anion Gap BUN Creatinine Estimated GFR BUN/Creatinine Ratio Glucose Calcium Total Bilirubin AST ALT Alkaline Phosphatase Troponin T < 0.010 Total Protein Albumin Albumin/Globulin Ratio HCG, Qual Influenza A (Rapid) Negative Influenza B (Rapid) Negative - EKG Data -: EKG Interpreted by Me EKG shows normal: sinus rhythm Rate: normal - EKG Data When compared to previous EKG there are: previous EKG unavailable Interpretation: other (No ischemic changes seen) - Radiology Data Radiology results: report reviewed (Chest x-ray), image reviewed (Chest x-ray) interpreted by me: Chest x-ray-no definite focal infiltrates, no pneumothorax. No foreign body seen [facility] [address] [place] [address] XRay Report Signed Patient: MARGARETH EDWARDS MR#: [id number] : 1980 Acct:[id number] Age/Sex: 40 / F ADM Date: 04/28/21 Loc: ED Attending Dr: Ordering Physician: BRONWYN SEQUEIRA NP Date of Service: 04/28/21 Procedure(s): XR chest routine 2V Accession Number(s): [id number] cc: BRONWYN SEQUEIRA NP Fluoro Time In Minutes: CHEST 2 VIEWS INDICATION / CLINICAL INFORMATION: Chest Pain. FINDINGS: SUPPORT DEVICES: None. HEART / MEDIASTINUM: No significant abnormality. LUNGS / PLEURA: No significant pulmonary or pleural abnormality. No pneumothorax. ADDITIONAL FINDINGS: No significant additional findings. IMPRESSION: 1. No acute findings. Signer Name: Willem Del Real MD Signed: 04/28/2021 3:24 PM Workstation Name: [id number] Transcribed By: BC Dictated By: Willem Del Real MD Electronically Authenticated By: Willem Del Real MD Signed Date/Time: 04/28/21 1524 DD/ 1524 TD/TT: Print Cancel - Differential Diagnosis URI, pneumonia, bronchitis, COVID-19, ACS, PE Critical care attestation.: If time is entered above; I have spent that time in minutes in the direct care of this critically ill patient, excluding procedure time. ED Disposition Clinical Impression: Chest tightness, Dyspnea on exertion, Suspected COVID-19 virus infection Disposition: OP ADMIT IP TO THIS HOSP Is pt being admited?: Yes Does the pt Need Aspirin: Yes Condition: Fair Referrals: CORI EWING MD [Primary Care Provider] - 3-5 Days Time of Disposition: 18:51 (Hospitalist paged (Dr. Alves)) Heart Score - HEART Score History: Moderately suspicious EKG: Normal Age: < 45 Risk factors: 1-2 risk factors Troponin: < normal limit HEART Score: 2 - EKG Read Time Time EKG Completed: 13:12 EKG Read Time: 13:20
[2021-04-28] MEDS ORDERED: cefTRIAXone/NS 1 GM/50 ML 1 GM/50 ML BAG IV ONE (18:49)
[2021-04-28] MEDS ORDERED: ASPIRIN 325 MG TAB PO ONE (18:49)
[2021-04-28 19:00] LABS: Bacteria,Urine 1+ /HPF (Negative); Bilirubin,Urine NEG (Negative); Blood,Urine NEG (Negative); Color,Urine Yellow (Yellow); Mucus,Urine FEW /HPF; Protein,Urine <15 mg/dL mg/dL (Negative); Urobilinogen,Urine < 2.0 mg/dL (<2.0)
[2021-04-28] MEDS ORDERED: ACETAMINOPHEN 325 MG TAB PO PRN (21:39)
[2021-04-28] MEDS ORDERED: ONDANSETRON 4 MG/2 ML INJ IV PRN (21:39)
[2021-04-28] MEDS ORDERED: oxyCODONE /ACETAMINOPHEN 5-325MG TAB PO PRN (21:39)
[2021-04-28] MEDS ORDERED: HYDROmorphone 1 MG/1 ML INJ IV PRN (21:39)
--- NOTE | 2021-04-28 21:39 | History and Physical Report ---
History of Present Illness Date of examination: 04/28/21 Date of admission: 04/28/2021 Chief complaint: Flulike symptoms for 1 day Chest tightness History of present illness: 40-year-old female with history of asthma and hypertension comes in for chest tightness and flulike symptoms. Patient developed sore throat body aches and nasal congestion since yesterday. Also constant tightness in the chest associated with shortness of breath. No diaphoresis. Patient admits to fever of 101 in the past. Patient states her nephew and [id number] are also sick. Patient has not received any vaccination for Covid. - Past Medical History Previous Medical History?: Yes --Asthma: Yes (child) --Htn - Surgical History Past Surgical History?: Yes Additional Surgical History: C section x1. rhinoplasty. - Family History Family history: no significant - Social History Smoking Status: Never Smoker Substance Use Type: None (Denies illicit drug use), Alcohol (Occasional) - Medications Home Medications: Home Medications Medication Instructions Recorded Confirmed Last Taken Type Erythromycin [Erythromycin Ophth 10 applic OS QID #1 tube 09/24/16 Unknown Rx Oint] Ibuprofen [Motrin 800 MG tab] 800 mg PO Q8HR PRN #30 tablet 09/24/16 Unknown Rx ALBUTEROL Inhaler(NF) [VENTOLIN 2 puff IH Q4H PRN #1 inha 12/09/18 Unknown Rx Inhaler(NF)] Benzocaine/Mentho [Cepacol X 1 each MM Q2H PRN #3 packet 12/09/18 Unknown Rx Strength] Ibuprofen [Ibuprofen 800] 800 mg PO TID PRN #30 tablet 12/09/18 Unknown Rx Ondansetron [Zofran Odt] 4 mg PO Q8HR PRN #12 tab.rapdis 12/09/18 Unknown Rx dexAMETHasone [Decadron] 4 mg PO BID 2 Days #4 tablet 12/09/18 Unknown Rx Ondansetron [Zofran Odt] 4 mg PO Q4HR PRN #20 tab.rapdis 01/28/19 Unknown Rx hydroCHLOROthiazide [Hctz] 12.5 mg PO BID #60 capsule 01/28/19 Unknown Rx traMADoL [Ultram] 50 mg PO Q6HR PRN #24 tablet 01/28/19 Unknown Rx Ondansetron [Zofran Odt] 4 mg PO Q8HR PRN #14 tab.rapdis 04/10/20 Unknown Rx traMADoL [Ultram 50 MG tab] 50 mg PO Q4HR PRN #14 tablet 04/10/20 Unknown Rx Review of Systems ROS: Stated complaint: SOB/CHEST PAIN x1WEEK Other details as noted in HPI Constitutional: diaphoresis, fever Eyes: denies: eye pain ENT: throat pain Respiratory: cough, shortness of breath Cardiovascular: chest pain Endocrine: no symptoms reported Gastrointestinal: nausea, vomiting Genitourinary: denies: dysuria Musculoskeletal: myalgia Neurological: headache Medications and Allergies Allergies Allergy/AdvReac Type Severity Reaction Status Date / Time No Known Allergies Allergy Verified 04/28/21 17:35 Home Medications Medication Instructions Recorded Confirmed Last Taken Type Erythromycin [Erythromycin Ophth 10 applic OS QID #1 tube 09/24/16 Unknown Rx Oint] Ibuprofen [Motrin 800 MG tab] 800 mg PO Q8HR PRN #30 tablet 09/24/16 Unknown Rx ALBUTEROL Inhaler(NF) [VENTOLIN 2 puff IH Q4H PRN #1 inha 12/09/18 Unknown Rx Inhaler(NF)] Benzocaine/Mentho [Cepacol X 1 each MM Q2H PRN #3 packet 12/09/18 Unknown Rx Strength] Ibuprofen [Ibuprofen 800] 800 mg PO TID PRN #30 tablet 12/09/18 Unknown Rx Ondansetron [Zofran Odt] 4 mg PO Q8HR PRN #12 tab.rapdis 12/09/18 Unknown Rx dexAMETHasone [Decadron] 4 mg PO BID 2 Days #4 tablet 12/09/18 Unknown Rx Ondansetron [Zofran Odt] 4 mg PO Q4HR PRN #20 tab.rapdis 01/28/19 Unknown Rx hydroCHLOROthiazide [Hctz] 12.5 mg PO BID #60 capsule 01/28/19 Unknown Rx traMADoL [Ultram] 50 mg PO Q6HR PRN #24 tablet 01/28/19 Unknown Rx Ondansetron [Zofran Odt] 4 mg PO Q8HR PRN #14 tab.rapdis 04/10/20 Unknown Rx traMADoL [Ultram 50 MG tab] 50 mg PO Q4HR PRN #14 tablet 04/10/20 Unknown Rx Exam - Constitutional Vitals: Temp Pulse Resp BP Pulse Ox 98.4 F 102 H 27 H 121/73 99 04/28/21 13:21 04/28/21 19:46 04/28/21 19:46 04/28/21 19:46 04/28/21 19:46 General appearance: Present: mild distress, well-nourished - EENT Eyes: Present: PERRL ENT: hearing intact, clear oral mucosa - Neck Neck: Present: supple, normal ROM - Respiratory Respiratory effort: normal Respiratory: bilateral: CTA - Cardiovascular Heart rate: 78 Rhythm: regular Heart Sounds: Present: S1 & S2. Absent: rub, click - Extremities Extremities: no ischemia, pulses intact, pulses symmetrical, No edema Peripheral Pulses: within normal limits - Abdominal General gastrointestinal: Present: soft, non-tender, non-distended, normal bowel sounds Female genitourinary: Present: normal - Integumentary Integumentary: Present: clear, warm, dry - Musculoskeletal Musculoskeletal: gait normal, strength equal bilaterally - Psychiatric Psychiatric: appropriate mood/affect, intact judgment & insight - Neurologic Neurologic: CNII-XII intact, moves all extremities - Allied Health Allied health notes reviewed: nursing, case management HEART Score - HEART Score EKG: Normal Age: < 45 Risk factors: 1-2 risk factors Troponin: Troponin T < 0.010 ng/mL (0.00-0.029) 04/28/21 18:14 Troponin: < normal limit Results - Labs CBC & Chem 7: 04/29/21 05:50 04/28/21 14:20 Labs: Laboratory Last Values WBC 4.5 K/mm3 (4.5-11.0) 04/28/21 14:20 RBC 5.68 M/mm3 (3.65-5.03) H 04/28/21 14:20 Hgb 13.3 gm/dl (10.1-14.3) 04/28/21 14:20 Hct 40.4 % (30.3-42.9) 04/28/21 14:20 MCV 71 fl (79-97) L 04/28/21 14:20 MCH 24 pg (28-32) L 04/28/21 14:20 MCHC 33 % (30-34) 04/28/21 14:20 RDW 15.2 % (13.2-15.2) 04/28/21 14:20 Plt Count 245 K/mm3 (140-440) 04/28/21 14:20 Lymph % (Auto) 47.5 % (13.4-35.0) H 04/28/21 14:20 [place] % (Auto) 8.8 % (0.0-7.3) H 04/28/21 14:20 Eos % (Auto) 0.0 % (0.0-4.3) 04/28/21 14:20 Baso % (Auto) 0.4 % (0.0-1.8) 04/28/21 14:20 Lymph # (Auto) 2.1 K/mm3 (1.2-5.4) 04/28/21 14:20 [place] # (Auto) 0.4 K/mm3 (0.0-0.8) 04/28/21 14:20 Eos # (Auto) 0.0 K/mm3 (0.0-0.4) 04/28/21 14:20 Baso # (Auto) 0.0 K/mm3 (0.0-0.1) 04/28/21 14:20 Seg Neutrophils % 43.3 % (40.0-70.0) 04/28/21 14:20 Seg Neutrophils # 1.9 K/mm3 (1.8-7.7) 04/28/21 14:20 PT 12.9 Sec. (12.2-14.9) 04/28/21 14:20 INR 0.92 (0.87-1.13) 04/28/21 14:20 APTT 29.7 Sec. (24.2-36.6) 04/28/21 14:20 D-Dimer 151.27 ng/mlDDU (0-234) 04/28/21 14:20 Sodium 138 mmol/L (137-145) 04/28/21 14:20 Potassium 3.3 mmol/L (3.6-5.0) L 04/28/21 14:20 Chloride 102.4 mmol/L (98-107) 04/28/21 14:20 Carbon Dioxide 23 mmol/L (22-30) 04/28/21 14:20 Anion Gap 16 mmol/L 04/28/21 14:20 BUN 7 mg/dL (7-17) 04/28/21 14:20 Creatinine 0.7 mg/dL (0.6-1.2) 04/28/21 14:20 Estimated GFR > 60 ml/min 04/28/21 14:20 BUN/Creatinine Ratio 10 % 04/28/21 14:20 Glucose 94 mg/dL (65-100) 04/28/21 14:20 Calcium 8.5 mg/dL (8.4-10.2) 04/28/21 14:20 Total Bilirubin 0.30 mg/dL (0.1-1.2) 04/28/21 14:20 AST 25 units/L (5-40) 04/28/21 14:20 ALT 18 units/L (7-56) 04/28/21 14:20 Alkaline Phosphatase 79 units/L (35-129) 04/28/21 14:20 Troponin T < 0.010 ng/mL (0.00-0.029) 04/28/21 18:14 Total Protein 7.4 g/dL (6.3-8.2) 04/28/21 14:20 Albumin 3.6 g/dL (3.9-5) L 04/28/21 14:20 Albumin/Globulin Ratio 0.9 % 04/28/21 14:20 HCG, Qual Negative (Negative) 04/28/21 14:20 Urine Color Yellow (Yellow) 04/28/21 Unknown Urine Turbidity Clear (Clear) 04/28/21 Unknown Urine pH 7.0 (5.0-7.0) 04/28/21 Unknown Ur Specific [place] 1.013 (1.003-1.030) 04/28/21 Unknown Urine Protein <15 mg/dl mg/dL (Negative) 04/28/21 Unknown Urine Glucose (UA) Neg mg/dL (Negative) 04/28/21 Unknown Urine Ketones Neg mg/dL (Negative) 04/28/21 Unknown Urine Blood Neg (Negative) 04/28/21 Unknown Urine Nitrite Neg (Negative) 04/28/21 Unknown Urine Bilirubin Neg (Negative) 04/28/21 Unknown Urine Urobilinogen < 2.0 mg/dL (<2.0) 04/28/21 Unknown Ur Leukocyte Esterase Neg (Negative) 04/28/21 Unknown Urine WBC (Auto) 1.0 /HPF (0.0-6.0) 04/28/21 Unknown Urine RBC (Auto) 1.0 /HPF (0.0-6.0) 04/28/21 Unknown U Epithel Cells (Auto) 7.0 /HPF (0-13.0) 04/28/21 Unknown Urine Bacteria (Auto) 1+ /HPF (Negative) 04/28/21 Unknown Urine Mucus Few /HPF 04/28/21 Unknown Influenza A (Rapid) Negative (Negative) 04/28/21 Unknown Influenza B (Rapid) Negative (Negative) 04/28/21 Unknown - Imaging and Cardiology EKG: report reviewed Imaging and Cardiology: Chest x-ray No acute findings Assessment and Plan Advance Directives: Yes (Full code) VTE prophylaxis?: Chemical Plan of care discussed with patient/family: Yes - Patient Problems (1) Suspected COVID-19 virus infection Current Visit: Yes Status: Acute Plan to address problem: Coronavirus PCR in a.m. IV antibiotics and IV Decadron for now (2) Viral syndrome Current Visit: Yes Status: Acute Plan to address problem: Patient on IV antibiotics Likely coronavirus positive Check coronavirus PCR test (3) Chest tightness Current Visit: Yes Status: Acute Plan to address problem: Nonspecific Troponins are negative (4) Hypertension Current Visit: Yes Status: Chronic Qualifiers: Hypertension type: primary hypertension Qualified Code(s): I10 - Essential (primary) hypertension Plan to address problem: Continue hydrochlorothiazide (5) Hypokalemia Current Visit: Yes Status: Acute Plan to address problem: Supplemented (6) DVT prophylaxis Current Visit: Yes Status: Acute Plan to address problem: On heparin and GI prophylaxis
[2021-04-28] MEDS: dexAMETHasone 4 MG/ML VIAL IV SCH (23:24)
[2021-04-28] MEDS: ENOXAPARIN 40 MG/0.4 ML INJ SUB-Q SCH (23:24)
[2021-04-28] MEDS: FAMOTIDINE 20 MG TAB PO SCH (23:25)
[2021-04-28] MEDS: AZITHROMYCIN/NS 500 MG/250 ML 500 MG/250 ML BAG IV SCH (23:25)
[2021-04-29 06:13] LABS: Basophils % (Auto) 0.5 % (0.0-1.8); Hematocrit 40.6 % (30.3-42.9); Lymphocytes # (Auto) 0.9 K/mm3 (1.2-5.4); Lymphocytes % (Auto) 16.6 % (13.4-35.0); Mean Corpuscular HGB Conc 32 % (30-34); Mean Corpuscular Volume 72 fl (79-97); Monocytes # (Auto) 0.1 K/mm3 (0.0-0.8); Monocytes % (Auto) 2.6 % (0.0-7.3); Platelet Count 254 K/mm3 (140-440); Red Blood Count 5.69 M/mm3 (3.65-5.03); Red Cell Distribution Width 15.4 % (13.2-15.2)
[2021-04-29 06:38] LABS: Alanine Aminotransferase 20 units/L (7-56); Albumin 4.2 g/dL (3.9-5); Blood Urea Nitrogen 7 mg/dL (7-17); Calcium 8.8 mg/dL (8.4-10.2); Hemolysis Index 7
[2021-04-29 06:41] LABS: BUN/Creatinine Ratio 10
[2021-04-29] MEDS ORDERED: POTASSIUM CHLORIDE ER 20 MEQ TAB PO ONE (06:44)
[2021-04-29] MEDS: FAMOTIDINE 20 MG TAB PO SCH ×2 (11:27→21:51)
[2021-04-29] MEDS: cefTRIAXone/NS 2 GM/100 ML 2 GM/100 ML BAG IV SCH (11:27)
[2021-04-29 16:22] LABS: C-Reactive Protein 3.3 mg/dL (0.00-1.30)
--- NOTE | 2021-04-29 17:28 | Progress Note ---
Assessment and Plan Assessment and plan: -- COVID-19 virus infection Current Visit: Yes Status: Acute Coronavirus PCR test is positive No hypoxia, patient is saturating 94 to 96% room air Contact isolation, Droplet isolation Check inflammatory markers, ID consultation Oxygen evaluation resting room air and ambulatory room air Home O2 evaluation prior to discharge -- Viral syndrome Current Visit: Yes Status: Acute IV fluids, antipyretics Supportive care COVID-19 test is positive, Influenza A and B- --Atypical chest tightness Current Visit: Yes Status: Acute Nonspecific, probably noncardiac Supportive care -- Hypertension Current Visit: Yes Status: Chronic Continue hydrochlorothiazide Continue current antihypertensives and as needed hydralazine --Hypokalemia/present on admission Current Visit: Yes Status: Acute Resolved, closely monitor electrolytes --Obesity; BMI 33.3 Current Visit: Yes Status: Acute Patient needs weight reduction and medically stable --DVT prophylaxis Current Visit: Yes Status: Acute On heparin and GI prophylaxis We will closely monitor the patient and adjust the management as needed Plan of care reviewed with the patient and her nurse History Interval history: I have seen and examined the patient at the bedside Strict isolation precautions, COVID-19 protocols followed Unvaccinated patient was admitted with upper respiratory symptoms [place] PCR test is positive this morning Patient complains of generalized body pains and upper respiratory symptoms Saturating well, O2 sats 94 to 96% room air Vital signs reviewed Hospitalist Physical - Constitutional Vitals: Temp Pulse Resp BP Pulse Ox 98.9 F 90 16 110/80 94 04/29/21 08:43 04/29/21 14:01 04/29/21 14:01 04/29/21 14:01 04/29/21 13:31 General appearance: Present: mild distress, well-nourished, obese - EENT Eyes: Present: PERRL, EOM intact - Neck Neck: Present: supple, normal ROM - Respiratory Respiratory effort: normal Respiratory: bilateral: diminished, rhonchi, negative: rales, wheezing - Cardiovascular Rhythm: regular Heart Sounds: Present: S1 & S2 - Extremities Extremities: no ischemia, No edema - Abdominal General gastrointestinal: soft, non-tender, non-distended, normal bowel sounds - Integumentary Integumentary: Present: clear, warm - Psychiatric Psychiatric: appropriate mood/affect, cooperative - Neurologic Neurologic: CNII-XII intact, moves all extremities HEART Score - HEART Score EKG: Normal Age: < 45 Risk factors: 1-2 risk factors Troponin: Troponin T < 0.010 ng/mL (0.00-0.029) 04/28/21 18:14 Troponin: < normal limit Results - Labs CBC & Chem 7: 04/29/21 05:50 04/29/21 05:50 Labs: Laboratory Last Values WBC 5.3 K/mm3 (4.5-11.0) 04/29/21 05:50 RBC 5.69 M/mm3 (3.65-5.03) H 04/29/21 05:50 Hgb 13.0 gm/dl (10.1-14.3) 04/29/21 05:50 Hct 40.6 % (30.3-42.9) 04/29/21 05:50 MCV 72 fl (79-97) L 04/29/21 05:50 MCH 23 pg (28-32) L 04/29/21 05:50 MCHC 32 % (30-34) 04/29/21 05:50 RDW 15.4 % (13.2-15.2) H 04/29/21 05:50 Plt Count 254 K/mm3 (140-440) 04/29/21 05:50 Lymph % (Auto) 16.6 % (13.4-35.0) 04/29/21 05:50 [place] % (Auto) 2.6 % (0.0-7.3) 04/29/21 05:50 Eos % (Auto) 0.0 % (0.0-4.3) 04/29/21 05:50 Baso % (Auto) 0.5 % (0.0-1.8) 04/29/21 05:50 Lymph # (Auto) 0.9 K/mm3 (1.2-5.4) L 04/29/21 05:50 [place] # (Auto) 0.1 K/mm3 (0.0-0.8) 04/29/21 05:50 Eos # (Auto) 0.0 K/mm3 (0.0-0.4) 04/29/21 05:50 Baso # (Auto) 0.0 K/mm3 (0.0-0.1) 04/29/21 05:50 Seg Neutrophils % 80.3 % (40.0-70.0) H 04/29/21 05:50 Seg Neutrophils # 4.2 K/mm3 (1.8-7.7) 04/29/21 05:50 PT 12.9 Sec. (12.2-14.9) 04/28/21 14:20 INR 0.92 (0.87-1.13) 04/28/21 14:20 APTT 29.7 Sec. (24.2-36.6) 04/28/21 14:20 D-Dimer 190.77 ng/mlDDU (0-234) 04/29/21 15:24 Sodium 140 mmol/L (137-145) 04/29/21 05:50 Potassium 4.0 mmol/L (3.6-5.0) D 04/29/21 05:50 Chloride 101.2 mmol/L (98-107) 04/29/21 05:50 Carbon Dioxide 29 mmol/L (22-30) 04/29/21 05:50 Anion Gap 14 mmol/L 04/29/21 05:50 BUN 7 mg/dL (7-17) 04/29/21 05:50 Creatinine 0.7 mg/dL (0.6-1.2) 04/29/21 05:50 Estimated GFR > 60 ml/min 04/29/21 05:50 BUN/Creatinine Ratio 10 % 04/29/21 05:50 Glucose 145 mg/dL (65-100) H 04/29/21 05:50 Calcium 8.8 mg/dL (8.4-10.2) 04/29/21 05:50 Ferritin 314.4 ng/mL (10.0-200.0) H 04/29/21 15:24 Total Bilirubin 0.30 mg/dL (0.1-1.2) 04/29/21 05:50 AST 27 units/L (5-40) 04/29/21 05:50 ALT 20 units/L (7-56) 04/29/21 05:50 Alkaline Phosphatase 87 units/L (35-129) 04/29/21 05:50 Lactate Dehydrogenase 262 units/L (91-180) H 04/29/21 15:24 Troponin T < 0.010 ng/mL (0.00-0.029) 04/28/21 18:14 C-Reactive Protein 3.30 mg/dL (0.00-1.30) H 04/29/21 15:24 Total Protein 7.0 g/dL (6.3-8.2) 04/29/21 05:50 Albumin 4.2 g/dL (3.9-5) 04/29/21 05:50 Albumin/Globulin Ratio 1.5 % 04/29/21 05:50 HCG, Qual Negative (Negative) 04/28/21 14:20 Urine Color Yellow (Yellow) 04/28/21 Unknown Urine Turbidity Clear (Clear) 04/28/21 Unknown Urine pH 7.0 (5.0-7.0) 04/28/21 Unknown Ur Specific [place] 1.013 (1.003-1.030) 04/28/21 Unknown Urine Protein <15 mg/dl mg/dL (Negative) 04/28/21 Unknown Urine Glucose (UA) Neg mg/dL (Negative) 04/28/21 Unknown Urine Ketones Neg mg/dL (Negative) 04/28/21 Unknown Urine Blood Neg (Negative) 04/28/21 Unknown Urine Nitrite Neg (Negative) 04/28/21 Unknown Urine Bilirubin Neg (Negative) 04/28/21 Unknown Urine Urobilinogen < 2.0 mg/dL (<2.0) 04/28/21 Unknown Ur Leukocyte Esterase Neg (Negative) 04/28/21 Unknown Urine WBC (Auto) 1.0 /HPF (0.0-6.0) 04/28/21 Unknown Urine RBC (Auto) 1.0 /HPF (0.0-6.0) 04/28/21 Unknown U Epithel Cells (Auto) 7.0 /HPF (0-13.0) 04/28/21 Unknown Urine Bacteria (Auto) 1+ /HPF (Negative) 04/28/21 Unknown Urine Mucus Few /HPF 04/28/21 Unknown Coronavirus (PCR) Positive (Negative) A 04/28/21 Unknown Influenza A (Rapid) Negative (Negative) 04/28/21 Unknown Influenza B (Rapid) Negative (Negative) 04/28/21 Unknown Microbiology: Microbiology 04/28/21 19:23 Peripheral/Venous Blood Culture - Preliminary Culture in Progress 04/28/21 19:23 Peripheral/Venous Blood Culture - Preliminary Culture in Progress Active Medications - Current Medications Current Medications: Generic Name Dose Route Start Last Admin Trade Name Freq PRN Reason Stop Dose Admin Acetaminophen 650 mg 04/28/21 21:39 Acetaminophen 325 Mg Tab PO Q4H PRN Pain MILD(1-3)/Fever >100.5/HERNANDEZ Dexamethasone 8 mg 04/28/21 22:00 04/28/21 23:24 Dexamethasone 4 Mg/Ml Vial IV 8 mg Q24H [place] Administration Enoxaparin Sodium 40 mg 04/28/21 22:00 04/28/21 23:24 Enoxaparin 40 Mg/0.4 Ml Inj SUB-Q 40 mg QDAY@2200 [place] Administration Famotidine 20 mg 04/28/21 22:00 04/29/21 11:27 Famotidine 20 Mg Tab PO 20 mg BID [place] Administration Hydromorphone HCl 0.5 mg 04/28/21 21:39 Hydromorphone 1 Mg/1 Ml Inj IV Q3H PRN Pain , Severe (7-10) Azithromycin 500 mg in 250 mls @ 250 mls/hr 04/28/21 22:00 04/28/21 23:25 Zithromax/Ns IV 05/02/21 22:59 250 mls/hr Q24H [place] Administration Ceftriaxone Sodium 2 gm in 100 mls @ 200 mls/hr 04/29/21 10:00 04/29/21 11:27 Rocephin/Ns 2 Gm/100 Ml IV 05/02/21 12:59 200 mls/hr Q24HR [place] Administration Protocol Ondansetron HCl 4 mg 04/28/21 21:39 Ondansetron 4 Mg/2 Ml Inj IV Q8H PRN Nausea And Vomiting Oxycodone/Acetaminophen 1 tab 04/28/21 21:39 Oxycodone /Acetaminophen 5-325mg Tab PO Q6H PRN Pain, Moderate (4-6) Sodium Chloride 10 ml 04/28/21 22:00 04/29/21 11:28 Sodium Chloride 0.9% 10 Ml Flush Syringe IV 10 ml BID [place] Administration Sodium Chloride 10 ml 04/28/21 21:39 Sodium Chloride 0.9% 10 Ml Flush Syringe IV PRN PRN LINE FLUSH
[2021-04-29] MEDS: AZITHROMYCIN/NS 500 MG/250 ML 500 MG/250 ML BAG IV SCH (21:50)
[2021-04-29] MEDS: ENOXAPARIN 40 MG/0.4 ML INJ SUB-Q SCH (21:50)
[2021-04-29] MEDS: dexAMETHasone 4 MG/ML VIAL IV SCH (21:51)
--- NOTE | 2021-04-30 09:14 | Electrocardiograph Report ---
[facility] Test Date: 2021-04-28 Test Time: 13:12:18 Pat Name: MARGARETH EDWARDS Department: Room: A359 Gender: F Circuit Board Inspector: Chris BLAS RN : [id number] Requested By: BRONWYN SEQUEIRA Order Number: [id number] Reading MD: Master Estevez Measurements Intervals [place] Rate: 101 P: 70 HI: 124 QRS: 34 QRSD: 88 T: 21 QT: 352 QTc: 456 Interpretive Statements Sinus tachycardia Probable left atrial enlargement No previous ECG available for comparison Electronically Signed On 04-30-2021 9:14:14 EDT by Master Estevez
[2021-04-30] MEDS: FAMOTIDINE 20 MG TAB PO SCH ×2 (09:49→21:44)
--- NOTE | 2021-04-30 09:57 | Progress Note ---
Assessment and Plan Assessment and plan: -- COVID-19 virus infection Current Visit: Yes Status: Acute Coronavirus PCR test is positive No hypoxia, patient is saturating 94 to 96% room air Contact isolation, Droplet isolation Check inflammatory markers, ID consultation Oxygen evaluation resting room air and ambulatory room air Home O2 evaluation prior to discharge -- Viral syndrome Current Visit: Yes Status: Acute IV fluids, antipyretics Supportive care COVID-19 test is positive, Influenza A and B- --Atypical chest tightness Current Visit: Yes Status: Acute Nonspecific, probably noncardiac Supportive care -- Hypertension Current Visit: Yes Status: Chronic Continue hydrochlorothiazide Continue current antihypertensives and as needed hydralazine --Hypokalemia/present on admission Current Visit: Yes Status: Acute Resolved, closely monitor electrolytes --Obesity; BMI 33.3 Current Visit: Yes Status: Acute Patient needs weight reduction and medically stable --DVT prophylaxis Current Visit: Yes Status: Acute On heparin and GI prophylaxis We will closely monitor the patient and adjust the management as needed Plan of care reviewed with the patient and her nurse History Interval history: I have seen and examined the patient in her room this morning Strict isolation precautions and PPE protocol followed Patient feels better no new complaints Denies any chest pain or shortness of breath Vital signs noted Hospitalist Physical - Constitutional Vitals: Temp Pulse Resp BP Pulse Ox 97.9 F 96 H 16 122/84 96 04/30/21 04:47 04/30/21 04:47 04/30/21 04:47 04/30/21 04:47 04/30/21 04:47 General appearance: Present: mild distress, well-nourished, obese - EENT Eyes: Present: PERRL, EOM intact - Neck Neck: Present: supple, normal ROM - Respiratory Respiratory effort: normal Respiratory: bilateral: diminished, rales, negative: rhonchi, wheezing - Cardiovascular Rhythm: regular Heart Sounds: Present: S1 & S2 - Extremities Extremities: no ischemia, No edema Peripheral Pulses: within normal limits - Abdominal General gastrointestinal: soft, non-tender, non-distended, normal bowel sounds - Integumentary Integumentary: Present: clear, warm - Psychiatric Psychiatric: appropriate mood/affect, intact judgment & insight - Neurologic Neurologic: CNII-XII intact, moves all extremities HEART Score - HEART Score EKG: Normal Age: < 45 Risk factors: 1-2 risk factors Troponin: Troponin T < 0.010 ng/mL (0.00-0.029) 04/28/21 18:14 Troponin: < normal limit Results - Labs CBC & Chem 7: 04/29/21 05:50 04/29/21 05:50 Labs: Laboratory Last Values WBC 5.3 K/mm3 (4.5-11.0) 04/29/21 05:50 RBC 5.69 M/mm3 (3.65-5.03) H 04/29/21 05:50 Hgb 13.0 gm/dl (10.1-14.3) 04/29/21 05:50 Hct 40.6 % (30.3-42.9) 04/29/21 05:50 MCV 72 fl (79-97) L 04/29/21 05:50 MCH 23 pg (28-32) L 04/29/21 05:50 MCHC 32 % (30-34) 04/29/21 05:50 RDW 15.4 % (13.2-15.2) H 04/29/21 05:50 Plt Count 254 K/mm3 (140-440) 04/29/21 05:50 Lymph % (Auto) 16.6 % (13.4-35.0) 04/29/21 05:50 [place] % (Auto) 2.6 % (0.0-7.3) 04/29/21 05:50 Eos % (Auto) 0.0 % (0.0-4.3) 04/29/21 05:50 Baso % (Auto) 0.5 % (0.0-1.8) 04/29/21 05:50 Lymph # (Auto) 0.9 K/mm3 (1.2-5.4) L 04/29/21 05:50 [place] # (Auto) 0.1 K/mm3 (0.0-0.8) 04/29/21 05:50 Eos # (Auto) 0.0 K/mm3 (0.0-0.4) 04/29/21 05:50 Baso # (Auto) 0.0 K/mm3 (0.0-0.1) 04/29/21 05:50 Seg Neutrophils % 80.3 % (40.0-70.0) H 04/29/21 05:50 Seg Neutrophils # 4.2 K/mm3 (1.8-7.7) 04/29/21 05:50 PT 12.9 Sec. (12.2-14.9) 04/28/21 14:20 INR 0.92 (0.87-1.13) 04/28/21 14:20 APTT 29.7 Sec. (24.2-36.6) 04/28/21 14:20 D-Dimer 190.77 ng/mlDDU (0-234) 04/29/21 15:24 Sodium 140 mmol/L (137-145) 04/29/21 05:50 Potassium 4.0 mmol/L (3.6-5.0) D 04/29/21 05:50 Chloride 101.2 mmol/L (98-107) 04/29/21 05:50 Carbon Dioxide 29 mmol/L (22-30) 04/29/21 05:50 Anion Gap 14 mmol/L 04/29/21 05:50 BUN 7 mg/dL (7-17) 04/29/21 05:50 Creatinine 0.7 mg/dL (0.6-1.2) 04/29/21 05:50 Estimated GFR > 60 ml/min 04/29/21 05:50 BUN/Creatinine Ratio 10 % 04/29/21 05:50 Glucose 145 mg/dL (65-100) H 04/29/21 05:50 Calcium 8.8 mg/dL (8.4-10.2) 04/29/21 05:50 Ferritin 314.4 ng/mL (10.0-200.0) H 04/29/21 15:24 Total Bilirubin 0.30 mg/dL (0.1-1.2) 04/29/21 05:50 AST 27 units/L (5-40) 04/29/21 05:50 ALT 20 units/L (7-56) 04/29/21 05:50 Alkaline Phosphatase 87 units/L (35-129) 04/29/21 05:50 Lactate Dehydrogenase 262 units/L (91-180) H 04/29/21 15:24 Troponin T < 0.010 ng/mL (0.00-0.029) 04/28/21 18:14 C-Reactive Protein 3.30 mg/dL (0.00-1.30) H 04/29/21 15:24 Total Protein 7.0 g/dL (6.3-8.2) 04/29/21 05:50 Albumin 4.2 g/dL (3.9-5) 04/29/21 05:50 Albumin/Globulin Ratio 1.5 % 04/29/21 05:50 HCG, Qual Negative (Negative) 04/28/21 14:20 Urine Color Yellow (Yellow) 04/28/21 Unknown Urine Turbidity Clear (Clear) 04/28/21 Unknown Urine pH 7.0 (5.0-7.0) 04/28/21 Unknown Ur Specific [place] 1.013 (1.003-1.030) 04/28/21 Unknown Urine Protein <15 mg/dl mg/dL (Negative) 04/28/21 Unknown Urine Glucose (UA) Neg mg/dL (Negative) 04/28/21 Unknown Urine Ketones Neg mg/dL (Negative) 04/28/21 Unknown Urine Blood Neg (Negative) 04/28/21 Unknown Urine Nitrite Neg (Negative) 04/28/21 Unknown Urine Bilirubin Neg (Negative) 04/28/21 Unknown Urine Urobilinogen < 2.0 mg/dL (<2.0) 04/28/21 Unknown Ur Leukocyte Esterase Neg (Negative) 04/28/21 Unknown Urine WBC (Auto) 1.0 /HPF (0.0-6.0) 04/28/21 Unknown Urine RBC (Auto) 1.0 /HPF (0.0-6.0) 04/28/21 Unknown U Epithel Cells (Auto) 7.0 /HPF (0-13.0) 04/28/21 Unknown Urine Bacteria (Auto) 1+ /HPF (Negative) 04/28/21 Unknown Urine Mucus Few /HPF 04/28/21 Unknown Coronavirus (PCR) Positive (Negative) A 04/28/21 Unknown Influenza A (Rapid) Negative (Negative) 04/28/21 Unknown Influenza B (Rapid) Negative (Negative) 04/28/21 Unknown Microbiology: Microbiology 04/28/21 19:23 Peripheral/Venous Blood Culture - Preliminary NO GROWTH AFTER 24 HOURS 04/28/21 19:23 Peripheral/Venous Blood Culture - Preliminary NO GROWTH AFTER 24 HOURS Hines/IV: Voiding Method Toilet Active Medications - Current Medications Current Medications: Generic Name Dose Route Start Last Admin Trade Name Freq PRN Reason Stop Dose Admin Acetaminophen 650 mg 04/28/21 21:39 Acetaminophen 325 Mg Tab PO Q4H PRN Pain MILD(1-3)/Fever >100.5/HERNANDEZ Dexamethasone 8 mg 04/30/21 10:00 Dexamethasone 4 Mg/Ml Vial IV 05/07/21 10:01 Q24HR [place] Enoxaparin Sodium 40 mg 04/28/21 22:00 04/29/21 21:50 Enoxaparin 40 Mg/0.4 Ml Inj SUB-Q 40 mg QDAY@2200 [place] Administration Famotidine 20 mg 04/28/21 22:00 04/30/21 09:49 Famotidine 20 Mg Tab PO 20 mg BID [place] Administration Hydromorphone HCl 0.5 mg 04/28/21 21:39 Hydromorphone 1 Mg/1 Ml Inj IV Q3H PRN Pain , Severe (7-10) Azithromycin 500 mg in 250 mls @ 250 mls/hr 04/28/21 22:00 04/29/21 21:50 Zithromax/Ns IV 05/02/21 22:59 250 mls/hr Q24H [place] Administration Ceftriaxone Sodium 2 gm in 100 mls @ 200 mls/hr 04/29/21 10:00 04/29/21 11:27 Rocephin/Ns 2 Gm/100 Ml IV 05/02/21 12:59 200 mls/hr Q24HR [place] Administration Protocol Ondansetron HCl 4 mg 04/28/21 21:39 Ondansetron 4 Mg/2 Ml Inj IV Q8H PRN Nausea And Vomiting Oxycodone/Acetaminophen 1 tab 04/28/21 21:39 Oxycodone /Acetaminophen 5-325mg Tab PO Q6H PRN Pain, Moderate (4-6) Sodium Chloride 10 ml 04/28/21 22:00 04/29/21 21:51 Sodium Chloride 0.9% 10 Ml Flush Syringe IV 10 ml BID [place] Administration Sodium Chloride 10 ml 04/28/21 21:39 Sodium Chloride 0.9% 10 Ml Flush Syringe IV PRN PRN LINE FLUSH
[2021-04-30] MEDS ORDERED: dexAMETHasone 4 MG/ML VIAL IV SCH (10:00)
[2021-04-30] MEDS: cefTRIAXone/NS 2 GM/100 ML 2 GM/100 ML BAG IV SCH (12:04)
--- NOTE | 2021-04-30 15:41 | Consultation ---
History of Present Illness - Reason for Consult Consult date: 04/30/21 COVID-19 Requesting physician: BRITT ESPINAL - History of Present Illness 40-year-old female with history of asthma and hypertension, admitted on 04/29/2021 secondary to a week history of body aches, malaise, dry cough, sore throat, nasal congestion and worsening shortness of breath. Patient did not receive COVID-19 vaccine. Patient recently went to [place] and probably was exposed to COVID-19. On arrival, temperature 98.4, HR 99, RR 18 O2 sat 98%, BP 124/87. D-dimer 151, CRP 3.3, ferritin 314. Urinalysis negative. Blood culture negative. Chest x-ray unremarkable. Review of Systems: positive in bold print General: fever, chills, malaise Cutaneous: rash, pruritus Head: headaches or injury Eyes: changes in vision, eye pain, double vision Ears: ear pain, ear discharge, ringing or hearing loss Nose: nose bleeding, stuffiness Mouth & throat: bleeding gums, horseness, no dental problems, or swollen glands Neck: no pain, node enlargement/lumps, tyroid enlargement or tenderness Respiratory: SOB, cough, YE, wheezing, sputum, hemoptysis, pleuritic chest pain Cardiovascular: chest pain, leg edema, cyanosis, YE, orthopnea Musculoskeletal: edema, deformities, pain Gastrointestinal: nausea, vomiting, hematemesis, diarrhea, constipation, melena, bright red blood in stools, fecal incontinence, jaundice Genitourinary/Reproductive: frequent urination, dysuria, hematuria, incontinence Neurogical: seizures, headaches, weakness, paresthesias, loss of speech or vision; memory loss, vertigo, tremors, numbness Psychiatric: stable mood; excessive anxiety, sadness or moodiness Medications and Allergies Allergies Allergy/AdvReac Type Severity Reaction Status Date / Time No Known Allergies Allergy Verified 04/28/21 17:35 Home Medications Medication Instructions Recorded Confirmed Last Taken Type Erythromycin [Erythromycin Ophth 10 applic OS QID #1 tube 09/24/16 Unknown Rx Oint] Ibuprofen [Motrin 800 MG tab] 800 mg PO Q8HR PRN #30 tablet 09/24/16 Unknown Rx ALBUTEROL Inhaler(NF) [VENTOLIN 2 puff IH Q4H PRN #1 inha 12/09/18 Unknown Rx Inhaler(NF)] Benzocaine/Mentho [Cepacol X 1 each MM Q2H PRN #3 packet 12/09/18 Unknown Rx Strength] Ibuprofen [Ibuprofen 800] 800 mg PO TID PRN #30 tablet 12/09/18 Unknown Rx Ondansetron [Zofran Odt] 4 mg PO Q8HR PRN #12 tab.rapdis 12/09/18 Unknown Rx dexAMETHasone [Decadron] 4 mg PO BID 2 Days #4 tablet 12/09/18 Unknown Rx Ondansetron [Zofran Odt] 4 mg PO Q4HR PRN #20 tab.rapdis 01/28/19 Unknown Rx hydroCHLOROthiazide [Hctz] 12.5 mg PO BID #60 capsule 01/28/19 Unknown Rx traMADoL [Ultram] 50 mg PO Q6HR PRN #24 tablet 01/28/19 Unknown Rx Ondansetron [Zofran Odt] 4 mg PO Q8HR PRN #14 tab.rapdis 04/10/20 Unknown Rx traMADoL [Ultram 50 MG tab] 50 mg PO Q4HR PRN #14 tablet 04/10/20 Unknown Rx Active Meds: Active Medications Acetaminophen (Acetaminophen 325 Mg Tab) 650 mg PO Q4H PRN PRN Reason: Pain MILD(1-3)/Fever >100.5/HERNANDEZ Dexamethasone (Dexamethasone 4 Mg/Ml Vial) 8 mg IV Q24HR [facility] Stop: 05/07/21 10:01 Last Admin: 04/30/21 12:05 Dose: 8 mg Documented by: Enoxaparin Sodium (Enoxaparin 40 Mg/0.4 Ml Inj) 40 mg SUB-Q QDAY@2200 [facility] Last Admin: 04/29/21 21:50 Dose: 40 mg Documented by: Famotidine (Famotidine 20 Mg Tab) 20 mg PO BID [facility] Last Admin: 04/30/21 09:49 Dose: 20 mg Documented by: Hydromorphone HCl (Hydromorphone 1 Mg/1 Ml Inj) 0.5 mg IV Q3H PRN PRN Reason: Pain , Severe (7-10) Azithromycin (Zithromax/Ns) 500 mg in 250 mls @ 250 mls/hr IV Q24H [facility] Stop: 05/02/21 22:59 Last Admin: 04/29/21 21:50 Dose: 250 mls/hr Documented by: Ceftriaxone Sodium (Rocephin/Ns 2 Gm/100 Ml) 2 gm in 100 mls @ 200 mls/hr IV Q24HR [facility]; Protocol Stop: 05/02/21 12:59 Last Admin: 04/30/21 12:04 Dose: 200 mls/hr Documented by: Ondansetron HCl (Ondansetron 4 Mg/2 Ml Inj) 4 mg IV Q8H PRN PRN Reason: Nausea And Vomiting Oxycodone/Acetaminophen (Oxycodone /Acetaminophen 5-325mg Tab) 1 tab PO Q6H PRN PRN Reason: Pain, Moderate (4-6) Sodium Chloride (Sodium Chloride 0.9% 10 Ml Flush Syringe) 10 ml IV BID [facility] Last Admin: 04/30/21 12:04 Dose: 10 ml Documented by: Sodium Chloride (Sodium Chloride 0.9% 10 Ml Flush Syringe) 10 ml IV PRN PRN PRN Reason: LINE FLUSH Physical Examination - Physical Exam Narrative exam: General appearance: Alert in NAD pleasant Eyes: anicteric sclerae, moist conjunctivae; no lid-lag; PERRLA HENT: Normocephalic, Atraumatic; normal external ears, nares open, oropharynx clear with moist mucous membranes and no oral thrush; normal hard and soft palate. Neck: supple, tracheal midline, no JVD Lungs: CTA, with normal respiratory effort and no intercostal retractions CV: RRR no murmur Abdomen: Soft, non-tender; no masses or hepatosplenomegaly Extremities: no edema, no cyanosis Skin: No rash. Psych: no agitated Neuro: alert and oriented x 3. Moving all extermities - Constitutional Vitals: Vital Signs Temp Pulse Resp BP Pulse Ox 97.9 F 91 H 16 122/84 97 04/30/21 04:47 04/30/21 10:59 04/30/21 04:47 04/30/21 04:47 04/30/21 10:59 Temperature -Last 24 Hours Temperature 97.9 F Temperature 99.2 F Results - Labs CBC & Chem 7: 04/29/21 05:50 04/29/21 05:50 Labs: Abnormal lab results 04/29/21 04/29/21 Range/Units 15:24 15:24 Ferritin 314.4 H (10.0-200.0) ng/mL Lactate Dehydrogenase 262 H (91-180) units/L C-Reactive Protein 3.30 H (0.00-1.30) mg/dL Assessment and Plan Cultures: Blood culture no growth today SARS-CoV-2 PCR positive Assessment: 40-year-old female with history of asthma and hypertension, admitted on 04/29/2021 secondary to a week history of body aches, malaise, dry cough, sore throat, nasal congestion and worsening shortness of breath: #COVID-19 infection: Chest x-ray without consolidation. Recent travel to [place]. Inflammatory markings mildly elevated, ferritin normal. #Asthma: Possible exacerbation. Recommendations: -Continue dexamethasone IV/PO daily for 10 days -No indication for remdesivir as patient is not hypoxic, exercise pulse oximeter test without hypoxia. -Monitor inflammatory markers - ferritin, Ddimer, CRP, LDH -Monitor liver function test on Remdesivir -Continue anticoagulation per System Protocol -Prone positioning as possible -Stop ceftriaxone and azithromycin, if procalcitonin <0.25 ng/mL Okay to discharge from ID standpoint. Afshan Chung MD Infectious Diseases [facility] M [phone] O [phone]
[2021-04-30] MEDS: AZITHROMYCIN/NS 500 MG/250 ML 500 MG/250 ML BAG IV SCH (21:44)
[2021-04-30] MEDS: ENOXAPARIN 40 MG/0.4 ML INJ SUB-Q SCH (21:44)
--- NOTE | 2021-05-01 08:38 | Progress Note ---
Assessment and Plan Assessment and plan: -- COVID-19 virus infection Current Visit: Yes Status: Acute Coronavirus PCR test is positive No hypoxia, patient is saturating 94 to 96% room air Contact isolation, Droplet isolation ID evaluation noted and appreciated Follow-up procalcitonin, if normal DC empiric antibiotics Saturating well on room air Home O2 evaluation reviewed, no need for home O2 inflammatory markers mildly elevated D-dimer 190.77 Ferritin 314.4 LDH 262 CRP 3.30 -- Viral syndrome Current Visit: Yes Status: Acute IV fluids, antipyretics Supportive care COVID-19 test is positive, Influenza A and B- --Atypical chest tightness Current Visit: Yes Status: Acute Nonspecific, probably noncardiac Supportive care -- Hypertension Current Visit: Yes Status: Chronic Continue hydrochlorothiazide Continue current antihypertensives and as needed hydralazine --Hypokalemia/present on admission Current Visit: Yes Status: Acute Resolved, closely monitor electrolytes --Obesity; BMI 33.3 Current Visit: Yes Status: Acute Patient needs weight reduction and medically stable --DVT prophylaxis Current Visit: Yes Status: Acute On heparin and GI prophylaxis We will closely monitor the patient and adjust the management as needed ID recommendations noted and appreciated Plan of care reviewed with the patient and her nurse If patient continues to improve may discharge her in 1 to 2 days stable History Interval history: I have seen and examined the patient at the bedside Isolation precautions and PPE protocols observed Patient's chart and medications reviewed Patient has no new complaints Vital signs noted Saturating well on room air Hospitalist Physical - Constitutional Vitals: Temp Pulse Resp BP Pulse Ox 98.1 F 82 18 141/86 95 05/01/21 05:47 05/01/21 05:47 05/01/21 05:47 05/01/21 05:47 05/01/21 05:47 General appearance: Present: no acute distress, well-nourished, obese - EENT Eyes: Present: PERRL, EOM intact - Neck Neck: Present: supple, normal ROM - Respiratory Respiratory effort: normal Respiratory: bilateral: diminished, negative: rales, rhonchi, wheezing - Cardiovascular Rhythm: regular Heart Sounds: Present: S1 & S2 - Extremities Extremities: no ischemia, No edema - Abdominal General gastrointestinal: soft, non-tender, non-distended, normal bowel sounds - Integumentary Integumentary: Present: clear, warm - Psychiatric Psychiatric: appropriate mood/affect, cooperative - Neurologic Neurologic: CNII-XII intact, moves all extremities HEART Score - HEART Score EKG: Normal Age: < 45 Risk factors: 1-2 risk factors Troponin: Troponin T < 0.010 ng/mL (0.00-0.029) 04/28/21 18:14 Troponin: < normal limit Results - Labs CBC & Chem 7: 04/29/21 05:50 04/29/21 05:50 Labs: Laboratory Last Values WBC 5.3 K/mm3 (4.5-11.0) 04/29/21 05:50 RBC 5.69 M/mm3 (3.65-5.03) H 04/29/21 05:50 Hgb 13.0 gm/dl (10.1-14.3) 04/29/21 05:50 Hct 40.6 % (30.3-42.9) 04/29/21 05:50 MCV 72 fl (79-97) L 04/29/21 05:50 MCH 23 pg (28-32) L 04/29/21 05:50 MCHC 32 % (30-34) 04/29/21 05:50 RDW 15.4 % (13.2-15.2) H 04/29/21 05:50 Plt Count 254 K/mm3 (140-440) 04/29/21 05:50 Lymph % (Auto) 16.6 % (13.4-35.0) 04/29/21 05:50 [place] % (Auto) 2.6 % (0.0-7.3) 04/29/21 05:50 Eos % (Auto) 0.0 % (0.0-4.3) 04/29/21 05:50 Baso % (Auto) 0.5 % (0.0-1.8) 04/29/21 05:50 Lymph # (Auto) 0.9 K/mm3 (1.2-5.4) L 04/29/21 05:50 [place] # (Auto) 0.1 K/mm3 (0.0-0.8) 04/29/21 05:50 Eos # (Auto) 0.0 K/mm3 (0.0-0.4) 04/29/21 05:50 Baso # (Auto) 0.0 K/mm3 (0.0-0.1) 04/29/21 05:50 Seg Neutrophils % 80.3 % (40.0-70.0) H 04/29/21 05:50 Seg Neutrophils # 4.2 K/mm3 (1.8-7.7) 04/29/21 05:50 PT 12.9 Sec. (12.2-14.9) 04/28/21 14:20 INR 0.92 (0.87-1.13) 04/28/21 14:20 APTT 29.7 Sec. (24.2-36.6) 04/28/21 14:20 D-Dimer 190.77 ng/mlDDU (0-234) 04/29/21 15:24 Sodium 140 mmol/L (137-145) 04/29/21 05:50 Potassium 4.0 mmol/L (3.6-5.0) D 04/29/21 05:50 Chloride 101.2 mmol/L (98-107) 04/29/21 05:50 Carbon Dioxide 29 mmol/L (22-30) 04/29/21 05:50 Anion Gap 14 mmol/L 04/29/21 05:50 BUN 7 mg/dL (7-17) 04/29/21 05:50 Creatinine 0.7 mg/dL (0.6-1.2) 04/29/21 05:50 Estimated GFR > 60 ml/min 04/29/21 05:50 BUN/Creatinine Ratio 10 % 04/29/21 05:50 Glucose 145 mg/dL (65-100) H 04/29/21 05:50 Calcium 8.8 mg/dL (8.4-10.2) 04/29/21 05:50 Ferritin 314.4 ng/mL (10.0-200.0) H 04/29/21 15:24 Total Bilirubin 0.30 mg/dL (0.1-1.2) 04/29/21 05:50 AST 27 units/L (5-40) 04/29/21 05:50 ALT 20 units/L (7-56) 04/29/21 05:50 Alkaline Phosphatase 87 units/L (35-129) 04/29/21 05:50 Lactate Dehydrogenase 262 units/L (91-180) H 04/29/21 15:24 Troponin T < 0.010 ng/mL (0.00-0.029) 04/28/21 18:14 C-Reactive Protein 3.30 mg/dL (0.00-1.30) H 04/29/21 15:24 Total Protein 7.0 g/dL (6.3-8.2) 04/29/21 05:50 Albumin 4.2 g/dL (3.9-5) 04/29/21 05:50 Albumin/Globulin Ratio 1.5 % 04/29/21 05:50 HCG, Qual Negative (Negative) 04/28/21 14:20 Urine Color Yellow (Yellow) 04/28/21 Unknown Urine Turbidity Clear (Clear) 04/28/21 Unknown Urine pH 7.0 (5.0-7.0) 04/28/21 Unknown Ur Specific [place] 1.013 (1.003-1.030) 04/28/21 Unknown Urine Protein <15 mg/dl mg/dL (Negative) 04/28/21 Unknown Urine Glucose (UA) Neg mg/dL (Negative) 04/28/21 Unknown Urine Ketones Neg mg/dL (Negative) 04/28/21 Unknown Urine Blood Neg (Negative) 04/28/21 Unknown Urine Nitrite Neg (Negative) 04/28/21 Unknown Urine Bilirubin Neg (Negative) 04/28/21 Unknown Urine Urobilinogen < 2.0 mg/dL (<2.0) 04/28/21 Unknown Ur Leukocyte Esterase Neg (Negative) 04/28/21 Unknown Urine WBC (Auto) 1.0 /HPF (0.0-6.0) 04/28/21 Unknown Urine RBC (Auto) 1.0 /HPF (0.0-6.0) 04/28/21 Unknown U Epithel Cells (Auto) 7.0 /HPF (0-13.0) 04/28/21 Unknown Urine Bacteria (Auto) 1+ /HPF (Negative) 04/28/21 Unknown Urine Mucus Few /HPF 04/28/21 Unknown Coronavirus (PCR) Positive (Negative) A 04/28/21 Unknown Influenza A (Rapid) Negative (Negative) 04/28/21 Unknown Influenza B (Rapid) Negative (Negative) 04/28/21 Unknown Microbiology: Microbiology 04/28/21 19:23 Peripheral/Venous Blood Culture - Preliminary NO GROWTH AFTER 48 HOURS 04/28/21 19:23 Peripheral/Venous Blood Culture - Preliminary NO GROWTH AFTER 48 HOURS Hines/IV: Voiding Method Toilet Active Medications - Current Medications Current Medications: Generic Name Dose Route Start Last Admin Trade Name Freq PRN Reason Stop Dose Admin Acetaminophen 650 mg 04/28/21 21:39 Acetaminophen 325 Mg Tab PO Q4H PRN Pain MILD(1-3)/Fever >100.5/HERNANDEZ Dexamethasone 8 mg 04/30/21 10:00 04/30/21 12:05 Dexamethasone 4 Mg/Ml Vial IV 05/07/21 10:01 8 mg Q24HR [place] Administration Enoxaparin Sodium 40 mg 04/28/21 22:00 04/30/21 21:44 Enoxaparin 40 Mg/0.4 Ml Inj SUB-Q 40 mg QDAY@2200 [place] Administration Famotidine 20 mg 04/28/21 22:00 04/30/21 21:44 Famotidine 20 Mg Tab PO 20 mg BID [place] Administration Hydromorphone HCl 0.5 mg 04/28/21 21:39 Hydromorphone 1 Mg/1 Ml Inj IV Q3H PRN Pain , Severe (7-10) Azithromycin 500 mg in 250 mls @ 250 mls/hr 04/28/21 22:00 04/30/21 21:44 Zithromax/Ns IV 05/02/21 22:59 250 mls/hr Q24H [place] Administration Ceftriaxone Sodium 2 gm in 100 mls @ 200 mls/hr 04/29/21 10:00 04/30/21 12:04 Rocephin/Ns 2 Gm/100 Ml IV 05/02/21 12:59 200 mls/hr Q24HR [place] Administration Protocol Ondansetron HCl 4 mg 04/28/21 21:39 Ondansetron 4 Mg/2 Ml Inj IV Q8H PRN Nausea And Vomiting Oxycodone/Acetaminophen 1 tab 04/28/21 21:39 Oxycodone /Acetaminophen 5-325mg Tab PO Q6H PRN Pain, Moderate (4-6) Sodium Chloride 10 ml 04/28/21 22:00 04/30/21 21:44 Sodium Chloride 0.9% 10 Ml Flush Syringe IV 10 ml BID [place] Administration Sodium Chloride 10 ml 04/28/21 21:39 Sodium Chloride 0.9% 10 Ml Flush Syringe IV PRN PRN LINE FLUSH
[2021-05-01] MEDS: cefTRIAXone/NS 2 GM/100 ML 2 GM/100 ML BAG IV SCH (09:54)
[2021-05-01] MEDS: DEXAMETHASONE 4 MG TAB PO SCH (09:54)
[2021-05-01] MEDS: FAMOTIDINE 20 MG TAB PO SCH ×2 (09:54→21:28)
--- NOTE | 2021-05-01 16:17 | Progress Note ---
Assessment and Plan Cultures: Blood culture no growth today SARS-CoV-2 PCR positive Assessment: 40-year-old female with history of asthma and hypertension, admitted on 04/29/2021 secondary to a week history of body aches, malaise, dry cough, sore throat, nasal congestion and worsening shortness of breath: #COVID-19 infection: Chest x-ray without consolidation. Recent travel to [place]. Inflammatory markings mildly elevated, ferritin normal. No hypoxia. Room Air resting pulse ox. 98% Ambulating r/a 98- 97%. #Asthma: Possible exacerbation. Recommendations: -Continue dexamethasone IV/PO daily for 10 days -No indication for remdesivir as patient is not hypoxic, exercise pulse oximeter test without hypoxia. Okay to discharge from ID standpoint. Afshan Chung MD Infectious Diseases [employer] [facility] ([facility]) M [phone] O [phone] Subjective Date of service: 05/01/21 Principal diagnosis: covid Interval history: Patient feels better. No need for oxygen supplementation. No fever. Objective - Exam Narrative Exam: General appearance: Alert in NAD pleasant Eyes: anicteric sclerae, moist conjunctivae; no lid-lag; PERRLA HENT: Normocephalic, Atraumatic; normal external ears, nares open, oropharynx clear Neck: supple, tracheal midline, no JVD Lungs: Scattered rhonchi bilaterally CV: RRR no murmur Abdomen: Soft, non-tender; no masses or hepatosplenomegaly Extremities: no edema, no cyanosis Skin: No rash. Psych: no agitated Neuro: alert and oriented x 3. Moving all extermities - Constitutional Vitals: Vital Signs Temp Pulse Resp BP Pulse Ox 98.2 F 83 22 119/73 92 05/01/21 11:18 05/01/21 11:18 05/01/21 11:18 05/01/21 11:18 05/01/21 11:18 Temperature -Last 24 Hours Temperature 98.2 F Temperature 98.1 F Temperature 98.1 F - Labs CBC & Chem 7: 04/29/21 05:50 04/29/21 05:50
[2021-05-01] MEDS: AZITHROMYCIN/NS 500 MG/250 ML 500 MG/250 ML BAG IV SCH (21:27)
[2021-05-01] MEDS: ENOXAPARIN 40 MG/0.4 ML INJ SUB-Q SCH (21:28)
[2021-05-01 21:30] VITALS: BP 123/75
--- NOTE | 2021-05-02 08:08 | Discharge Summary ---
Providers - Providers Date of Admission: 04/28/21 23:53 Date of discharge: 05/02/21 Attending physician: BRITT ESPINAL 04/29/21 15:24 Consult to Physician [CONS] Routine Comment: Consulting Provider: RIGO VALENCIA Physician Instructions: Reason For Exam: Positive COVID-19 test Primary care physician: CORI EWING Hospitalization Reason for admission: Flu like symptoms for 1 day Condition: Fair Pertinent studies: cxr; no acute abnormalities Hospital course: 40-year-old female with history of asthma and hypertension comes in for chest tightness and flulike symptoms. Patient developed sore throat body aches and nasal congestion since yesterday. Also constant tightness in the chest associated with shortness of breath. No diaphoresis. Patient admits to fever of 101 in the past. Patient states her nephew and [id number] are also sick. Patient has not received any vaccination for Covid. Patient was admitted as high suspicion for COVID-19, placed in isolation and management started per protocol, malik PCR test was done which was positive Placed under contact and droplet isolation and inflammatory markers closely monitored, ID evaluated the patient and optimize the medication Patient also had atypical chest tightness, resolved with symptomatic management. Patient completed 10 days of dexamethasone, patient did not need remdesivir as patient was not hypoxemic Patient symptoms slowly but gradually improved today she is comfortable no new complaints vital signs stable Physical examination prior to discharge is unremarkable Patient is hemodynamically and clinically stable at discharge. Patient was counseled diet modification exercise as tolerated and weight reduction when stable Patient verbalized understanding. Cleared by consultants, stable at discharge Discharge diagnosis; -- COVID-19 virus infection Current Visit: Yes Status: Acute -- Viral syndrome Current Visit: Yes Status: Acute --Atypical chest tightness Current Visit: Yes Status: Acute -- Hypertension Current Visit: Yes Status: Chronic --Hypokalemia/present on admission Current Visit: Yes Status: Acute --Obesity; BMI 33.3 Current Visit: Yes Status: Acute --DVT prophylaxis Current Visit: Yes Status: Acute Stable at discharge Disposition: TO HOME OR SELFCARE Final Discharge Diagnosis (Prints w/discharge instructions): COVID-19 infection. Viral syndrome. Atypical chest pain and tightness resolved. Hypertension Time spent for discharge: 35 min Core Measure Documentation - Palliative Care Palliative Care/ Comfort Measures: Not Applicable - Core Measures Any of the following diagnoses?: none Exam - Constitutional Vitals: Temp Pulse Resp BP Pulse Ox 98.8 F 79 16 123/75 97 05/01/21 20:29 05/01/21 20:29 05/01/21 22:00 05/01/21 20:29 05/01/21 20:29 General appearance: Present: no acute distress, well-nourished, obese - EENT Eyes: Present: PERRL, EOM intact - Neck Neck: Present: supple, normal ROM - Respiratory Respiratory effort: normal Respiratory: bilateral: diminished, rhonchi, negative: rales, wheezing - Cardiovascular Rhythm: regular Heart Sounds: Present: S1 & S2 - Extremities Extremities: no ischemia, No edema - Abdominal General gastrointestinal: Present: soft, non-tender, non-distended, normal bowel sounds - Integumentary Integumentary: Present: clear, warm - Musculoskeletal Musculoskeletal: strength equal bilaterally - Psychiatric Psychiatric: appropriate mood/affect, cooperative - Neurologic Neurologic: moves all extremities Plan Activity: advance as tolerated Diet: regular Additional Instructions: Strict isolation precautions, social distancing, wearing mask, and other COVID-19 protocols and precautions as explained by the discharge nurse. If you have worsening symptoms contact MD or go to the nearest emergency room. Advised weight reduction when you are medically stable Follow up with: CORI EWING MD [Primary Care Provider] - 3-5 Days Prescriptions: dexAMETHasone [Dexamethasone] 6 mg PO DAILY #6 tablet Famotidine [Pepcid] 20 mg PO BID #20 tablet Ascorbic Acid [Vitamin C chew] 500 mg PO BID #30 tab.chew Zinc Sulfate [Zinc] 220 mg PO BID #30 tablet
[2021-05-02] MEDS: DEXAMETHASONE 4 MG TAB PO SCH (10:24)
[2021-05-02] MEDS: FAMOTIDINE 20 MG TAB PO SCH (10:24)
== END 2021-05-02 12:30 | disposition home or self-care (01) | DRG 179 ==
LOC: ED 12:52 → 3A 23:53
PROVIDERS: ADMIT Internal Medicine; ATTEND Internal Medicine
DX: U07.1 COVID-19 (principal); I10 Essential (primary) hypertension; E87.6 Hypokalemia; B34.9 Viral infection, unspecified; E66.9 Obesity, unspecified; Z68.33 Body mass index [BMI] 33.0-33.9, adult; Z79.899 Other long term (current) drug therapy; Z72.89 Other problems related to lifestyle; J45.909 Unspecified asthma, uncomplicated
CPT/HCPCS: 36415; 71046; 80053; 81001; 82728; 83615; 84484; 84703; 85025; 85379; 85610; 85730; 86140; 87040; 87400; 93005; 94644; 96374; G0378; J0456; J0696; J1100; J1650; J8540; U0003